=== PATIENT | male | born 1940 | race Caucasian/White ===

== ENCOUNTER → 2016-08-20 | Outpatient (CLI) | payer MEDICARE ==
[2015-11-10 15:04] VITALS: BP 157/75
[~2016-08-20] MED LIST: ACET500T33 PO; ASPI-482 PO; ATEN25TA PO; BUDE180A IH; CRESTOR10 MG PO; FAMO-63 PO; FLUT1DIS3 IH; LOSA1TAB17 PO; METF-620 PO; METF500T4 PO; OLME1TAB5 PO; PIOG45TA19 PO; POTA20TA4 PO; RHINOCORT; SALM50DI IH; SIMV40TA PO; [UNRECOGNIZED DRUG - CODE]
[2016-08-20 07:48] LABS: BASO % 1 % (0-3); EOS % 2 % (0-3); HEMATOCRIT 39.5 % (39.0-53.0); HEMOGLOBIN 13.6 g/dL (13.0-17.5); LYMPH # 1.6 x10^3/uL (1.0-4.8); LYMPH % 27 % (24-48); MEAN CORPUSCULAR HEMOGLOBIN 33 pg (25-35); MEAN CORPUSCULAR HGB CONC 34 g/dL (31-37); MEAN CORPUSCULAR VOLUME 95 fL (79-100); MONO % 8 % (0-9); NEUT % 62 % (31-73); PLATELET COUNT 216 x10^3/uL (140-400); RED BLOOD COUNT 4.16 x10^6/uL (4.30-5.70); RED CELL DISTRIBUTION WIDTH 13.9 % (11.5-14.5); WHITE BLOOD COUNT 5.7 x10^3/uL (4.0-11.0)
[2016-08-20 07:52] LABS: CALCIUM 8.8 mg/dL (8.5-10.1); CREATININE 1.1 mg/dL (0.7-1.3); GFR 64.7; PHOSPHORUS 2.8 mg/dL (2.6-4.7); POTASSIUM 3.4 mmol/L (3.5-5.1)
[2016-08-20 07:53] LABS: ALBUMIN 3.6 g/dL (3.4-5.0)
[2016-08-20 12:15] LABS: UR PROTEIN RD 14.4 mg/dL (Not Estab.)
== END | disposition home or self-care (01) ==
LOC: LAB 07:11
PROVIDERS: ATTEND Nurse Practitioner
DX: N18.1 Chronic kidney disease, stage 1 (principal); R80.9 Proteinuria, unspecified
CPT/HCPCS: 36415; 80069; 82570; 84156; 85027

== ENCOUNTER → 2016-10-24 | Outpatient (CLI) | payer MEDICARE ==
[2015-11-10 15:04] VITALS: BP 157/75
[~2016-10-24] MED LIST changes: +OLME1TAB25 PO; -OLME1TAB5 PO; -PIOG45TA19 PO; +PIOG45TA40 PO
== END | disposition home or self-care (01) ==
LOC: LAB 07:07
PROVIDERS: ATTEND Specialist
DX: Z12.5 Encounter for screening for malignant neoplasm of prostate (principal); N40.1 Benign prostatic hyperplasia with lower urinary tract symptoms
CPT/HCPCS: 36415; G0103

== ENCOUNTER → 2017-02-13 | Outpatient (CLI) | payer MEDICARE ==
[2015-11-10 15:04] VITALS: BP 157/75
[~2017-02-13] MED LIST changes: -LOSA1TAB17 PO; +LOSA1TAB22 PO
[2017-02-13 08:09] LABS: BASO % 1 % (0-3); EOS % 2 % (0-3); HEMATOCRIT 40.1 % (39.0-53.0); HEMOGLOBIN 13.8 g/dL (13.0-17.5); LYMPH # 1.6 x10^3/uL (1.0-4.8); LYMPH % 22 % (24-48); MEAN CORPUSCULAR HEMOGLOBIN 34 pg (25-35); MEAN CORPUSCULAR HGB CONC 34 g/dL (31-37); MEAN CORPUSCULAR VOLUME 98 fL (79-100); MONO % 7 % (0-9); NEUT % 69 % (31-73); PLATELET COUNT 211 x10^3/uL (140-400); RED BLOOD COUNT 4.09 x10^6/uL (4.30-5.70); RED CELL DISTRIBUTION WIDTH 14.5 % (11.5-14.5); WHITE BLOOD COUNT 7.1 x10^3/uL (4.0-11.0)
[2017-02-13 08:26] LABS: ALBUMIN 3.6 g/dL (3.4-5.0); CALCIUM 9.4 mg/dL (8.5-10.1); CREATININE 1.1 mg/dL (0.7-1.3); GFR 64.6; PHOSPHORUS 3.1 mg/dL (2.6-4.7); POTASSIUM 3.4 mmol/L (3.5-5.1)
== END | disposition home or self-care (01) ==
LOC: LAB 07:16
PROVIDERS: ATTEND Nurse Practitioner
DX: N18.1 Chronic kidney disease, stage 1 (principal); R80.9 Proteinuria, unspecified
CPT/HCPCS: 36415; 80069; 82570; 84156; 85025

== ENCOUNTER → 2017-08-20 | Outpatient (CLI) | payer MEDICARE ==
[2017-08-20 07:25] LABS: ADD MAN DIFF? NO
[2017-08-20 07:30] LABS: BASO % 0 % (0-3); EOS # 0.2 x10^3/uL (0.0-0.7); EOS % 3 % (0-3); HEMATOCRIT 39.4 % (39.0-53.0); HEMOGLOBIN 14.1 g/dL (13.0-17.5); LYMPH # 1.8 x10^3/uL (1.0-4.8); LYMPH % 26 % (24-48); MEAN CORPUSCULAR HEMOGLOBIN 35 pg (25-35); MEAN CORPUSCULAR HGB CONC 36 g/dL (31-37); MEAN CORPUSCULAR VOLUME 97 fL (79-100); MONO # 0.5 x10^3/uL (0.0-1.1); MONO % 7 % (0-9); NEUT # 4.4 x10^3uL (1.8-7.7); NEUT % 64 % (31-73); PLATELET COUNT 204 x10^3/uL (140-400); RED BLOOD COUNT 4.07 x10^6/uL (4.30-5.70); RED CELL DISTRIBUTION WIDTH 15.4 % (11.5-14.5); WHITE BLOOD COUNT 6.9 x10^3/uL (4.0-11.0)
[2017-08-20 07:41] LABS: ALBUMIN 3.9 g/dL (3.4-5.0); ANION GAP 6 (6-14); BLOOD UREA NITROGEN 16 mg/dL (8-26); CARBON DIOXIDE 30 mmol/L (21-32); CHLORIDE 101 mmol/L (98-107); CREATININE 1.2 mg/dL (0.7-1.3); GFR 58.4; GLUCOSE 146 mg/dL (70-99); POTASSIUM 3.9 mmol/L (3.5-5.1); SODIUM 137 mmol/L (136-145)
[2017-08-20 12:21] LABS: TOTAL PROTEIN CREATININE RATIO 109 mg/g creat (0-200); UR CREATININE RD 138.1 mg/dL (Not Estab.)
== END | disposition home or self-care (01) ==
LOC: LAB 07:08
DX: I12.9 Hypertensive chronic kidney disease with stage 1 through stage 4 chronic kidney disease, or unspecified chronic kidney disease (principal); N18.1 Chronic kidney disease, stage 1; E11.9 Type 2 diabetes mellitus without complications; R80.9 Proteinuria, unspecified
CPT/HCPCS: 36415; 80069; 82570; 84156; 85025

== ENCOUNTER → 2017-10-25 | Outpatient (CLI) | payer MEDICARE ==
[2017-10-25 09:28] LABS: PROSTATE SPECIFIC ANTIGEN 0.58 ng/mL (0.00-4.00)
== END | disposition home or self-care (01) ==
LOC: LAB 07:10
DX: Z12.5 Encounter for screening for malignant neoplasm of prostate (principal); N40.1 Benign prostatic hyperplasia with lower urinary tract symptoms; I10 Essential (primary) hypertension; E11.9 Type 2 diabetes mellitus without complications
CPT/HCPCS: 36415; G0103

== ENCOUNTER → 2018-01-28 | Outpatient (CLI) | payer MEDICARE ==
[2015-11-10 15:04] VITALS: BP 157/75
[~2018-01-28] MED LIST changes: -METF-620 PO; +METF10007 PO; +METF500T16 PO; -METF500T4 PO
[2018-01-28 07:38] LABS: BASO % 1 % (0-3); EOS # 0.1 x10^3/uL (0.0-0.7); EOS % 2 % (0-3); HEMATOCRIT 37.5 % (39.0-53.0); HEMOGLOBIN 13.5 g/dL (13.0-17.5); LYMPH # 1.5 x10^3/uL (1.0-4.8); LYMPH % 26 % (24-48); MEAN CORPUSCULAR HEMOGLOBIN 37 pg (25-35); MEAN CORPUSCULAR HGB CONC 36 g/dL (31-37); MEAN CORPUSCULAR VOLUME 102 fL (79-100); MONO # 0.4 x10^3/uL (0.0-1.1); MONO % 7 % (0-9); NEUT # 3.9 x10^3uL (1.8-7.7); NEUT % 65 % (31-73); PLATELET COUNT 221 x10^3/uL (140-400); RED BLOOD COUNT 3.68 x10^6/uL (4.30-5.70); RED CELL DISTRIBUTION WIDTH 13.6 % (11.5-14.5)
[2018-01-28 07:51] LABS: ALBUMIN 3.9 g/dL (3.4-5.0); CALCIUM 9.1 mg/dL (8.5-10.1); CREATININE 1.1 mg/dL (0.7-1.3); GFR 64.4; PHOSPHORUS 2.9 mg/dL (2.6-4.7); POTASSIUM 3.4 mmol/L (3.5-5.1)
[2018-01-28 15:27] LABS: UR PROTEIN RD 22.3 mg/dL (Not Estab.)
== END | disposition home or self-care (01) ==
LOC: LAB 07:04
PROVIDERS: ATTEND Nurse Practitioner
DX: I12.9 Hypertensive chronic kidney disease with stage 1 through stage 4 chronic kidney disease, or unspecified chronic kidney disease (principal); E11.22 Type 2 diabetes mellitus with diabetic chronic kidney disease; N18.1 Chronic kidney disease, stage 1; R80.9 Proteinuria, unspecified
CPT/HCPCS: 36415; 80069; 82570; 84156; 85025

== ENCOUNTER → 2018-07-29 | Outpatient (CLI) | payer MEDICARE ==
[2015-11-10 15:04] VITALS: BP 157/75
[~2018-07-29] MED LIST changes: +ALBU2.5V8 IH; +AMLO5TAB10 PO; +ATOR20TA58 PO; +GLIP10TA13 PO; +OMEG1CAP38 PO
[2018-07-29 07:48] LABS: BASO % 1 % (0-3); EOS # 0.1 x10^3/uL (0.0-0.7); EOS % 2 % (0-3); HEMOGLOBIN 13.2 g/dL (13.0-17.5); LYMPH # 1.4 x10^3/uL (1.0-4.8); LYMPH % 26 % (24-48); MEAN CORPUSCULAR HEMOGLOBIN 36 pg (25-35); MEAN CORPUSCULAR HGB CONC 36 g/dL (31-37); MEAN CORPUSCULAR VOLUME 101 fL (79-100); MONO # 0.4 x10^3/uL (0.0-1.1); MONO % 7 % (0-9); NEUT # 3.6 x10^3uL (1.8-7.7); NEUT % 65 % (31-73); PLATELET COUNT 189 x10^3/uL (140-400); RED BLOOD COUNT 3.65 x10^6/uL (4.30-5.70); RED CELL DISTRIBUTION WIDTH 15.5 % (11.5-14.5); WHITE BLOOD COUNT 5.5 x10^3/uL (4.0-11.0)
[2018-07-29 07:59] LABS: ALBUMIN 3.8 g/dL (3.4-5.0); CALCIUM 9.1 mg/dL (8.5-10.1); CREATININE 1.2 mg/dL (0.7-1.3); GFR 58.3; PHOSPHORUS 2.6 mg/dL (2.6-4.7); POTASSIUM 3.4 mmol/L (3.5-5.1)
[2018-07-29 08:56] LABS: CREATININE,RANDOM URINE 156.2 mg/dL (Not Establ.)
[2018-07-29 17:23] LABS: CALCIUM PTH 8.9 mg/dL (8.6-10.2); CREATININE PTH 1.14 mg/dL (0.76-1.27); PHOSPHORUS PTH 2.3 mg/dL (2.5-4.5); PTH INTACT 59 pg/mL (15-65)
== END | disposition home or self-care (01) ==
LOC: LAB 07:06
PROVIDERS: ATTEND Nurse Practitioner
DX: I12.9 Hypertensive chronic kidney disease with stage 1 through stage 4 chronic kidney disease, or unspecified chronic kidney disease (principal); N18.1 Chronic kidney disease, stage 1; R80.9 Proteinuria, unspecified
CPT/HCPCS: 36415; 80069; 82570; 83970; 84156; 85025

== ENCOUNTER 2018-08-22 10:17 | Inpatient (IN) | payer MEDICARE ==
[~2018-08-22] VITALS: Ht 185.4 cm; Wt 90.3 kg
[~2018-08-22 10:17] MED LIST changes: -ALBU2.5V8 IH; -AMLO5TAB10 PO; -ATOR20TA58 PO; -GLIP10TA13 PO; -OMEG1CAP38 PO
[2018-08-22] MEDS ORDERED: IV NORMAL SALINE 500ML BAG 500 ML IV ONE (11:00)
[2018-08-22 11:10] LABS: BASO % 1 % (0-3); EOS # 0.1 x10^3/uL (0.0-0.7); EOS % 1 % (0-3); HEMATOCRIT 38.8 % (39.0-53.0); HEMOGLOBIN 13.3 g/dL (13.0-17.5); LYMPH # 1.2 x10^3/uL (1.0-4.8); LYMPH % 24 % (24-48); MEAN CORPUSCULAR HEMOGLOBIN 35 pg (25-35); MEAN CORPUSCULAR HGB CONC 34 g/dL (31-37); MEAN CORPUSCULAR VOLUME 103 fL (79-100); MONO # 0.3 x10^3/uL (0.0-1.1); MONO % 7 % (0-9); NEUT # 3.4 x10^3uL (1.8-7.7); NEUT % 68 % (31-73); PLATELET COUNT 180 x10^3/uL (140-400); RED BLOOD COUNT 3.79 x10^6/uL (4.30-5.70); RED CELL DISTRIBUTION WIDTH 15.7 % (11.5-14.5)
[2018-08-22] MEDS ORDERED: ASPIRIN CHEWABLE 81 MG TABLET. PO ONE (11:15)
--- NOTE | 2018-08-22 11:15 | PHYS DOC ---
Past Medical History Past Medical History: Arrhythmia, COPD, Diabetes-Type II, High Cholesterol, Hypertension Past Surgical History: No Surgical History Smoking: Quit Greater Than 1 Year Alcohol Use: None Drug Use: None Adult General Chief Complaint Chief Complaint: RAPID HEART RATE HPI HPI Patient is a 78 year old male who presents after having an episode of rapid heart rate and low blood pressure this morning. Around 0945, he was sitting at the computer when he began to feel warm, lightheaded, dizzy and noticed his heart beating faster. He and his measured his pulse at 158 and his blood pressure at 90/59 at that time. Previously that morning he had been normotensive with an appropriate heart rate. The episode self-resolved and he did not experience any chest pain, shortness or breath, headache, weakness or paresthesias. He does however still feel slightly nauseous. Of note, patient was seen approximately [address] Yip for an arrhythmia which was able to be resolved by "bearing down". Patient's heart rate is now 77 with blood pressure of 126/65. Review of Systems Review of Systems Constitutional: Denies fever or chills Eyes: Denies blurred vision or diplopia HENT: Denies nasal congestion or sore throat Respiratory: Denies cough or shortness of breath Cardiovascular: Reports palpitations earlier in the morning. Denies chest pain GI: Reports nausea. Denies vomiting, abdominal pain. : Denies dysuria or hematuria Neurologic: Reports dizziness. Denies headache, focal weakness or sensory changes Complete systems were reviewed and found to be within normal limits, except as documented in this note. Current Medications Current Medications Current Medications Medications (Trade) Dose Ordered Sig/Alyssa Start Time Stop Time Status Last Admin Dose Admin Aspirin (Children'S Aspirin) 324 mg 1X ONCE 08/22/18 11:15 08/22/18 11:17 DC 08/22/18 11:42 324 MG Magnesium Sulfate 50 ml @ 25 mls/hr 1X ONCE 08/22/18 12:45 08/22/18 14:44 Sodium Chloride 500 ml @ 500 mls/hr 1X ONCE 08/22/18 11:00 08/22/18 11:59 DC 08/22/18 11:05 500 MLS/HR Allergies Allergies Allergies Coded Allergies Type Severity Reaction Last Updated Verified NSAIDS (Non-Steroidal Anti-Inflamma Allergy Severe SWELLING 08/22/18 Yes Physical Exam Physical Exam Constitutional: Well developed, well nourished, no acute distress, non-toxic appearance HENT: Normocephalic, atraumatic, oropharynx moist Eyes: EOMI, conjunctiva normal, no discharge Cardiovascular: Heart rate normal, regular rhythm Lungs & Thorax: Bilateral breath sounds clear to auscultation, no wheezing Abdomen: Soft, no tenderness Skin: Warm, dry, no erythema, no rash Extremities: Radial pulses +2 bilaterally, cap refill less than 2 seconds. Neurologic: Alert and oriented, no focal deficits noted Psychologic: Affect normal, judgement normal, mood normal Current Patient Data Vital Signs Vital Signs Date Time Temp Pulse Resp B/P (MAP) Pulse Ox O2 Delivery O2 Flow Rate FiO2 08/22/18 10:40 98.4 79 18 134/69 (90) 98 Room Air 98.4 Lab Values Laboratory Tests Test 08/22/18 11:00 White Blood Count 5.0 x10^3/uL (4.0-11.0) Red Blood Count 3.79 x10^6/uL (4.30-5.70) L Hemoglobin 13.3 g/dL (13.0-17.5) Hematocrit 38.8 % (39.0-53.0) L Mean Corpuscular Volume 103 fL (79-100) H Mean Corpuscular Hemoglobin 35 pg (25-35) Mean Corpuscular Hemoglobin Concent 34 g/dL (31-37) Red Cell Distribution Width 15.7 % (11.5-14.5) H Platelet Count 180 x10^3/uL (140-400) Neutrophils (%) (Auto) 68 % (31-73) Lymphocytes (%) (Auto) 24 % (24-48) Monocytes (%) (Auto) 7 % (0-9) Eosinophils (%) (Auto) 1 % (0-3) Basophils (%) (Auto) 1 % (0-3) Neutrophils # (Auto) 3.4 x10^3uL (1.8-7.7) Lymphocytes # (Auto) 1.2 x10^3/uL (1.0-4.8) Monocytes # (Auto) 0.3 x10^3/uL (0.0-1.1) Eosinophils # (Auto) 0.1 x10^3/uL (0.0-0.7) Basophils # (Auto) 0.0 x10^3/uL (0.0-0.2) Prothrombin Time 12.2 SEC (11.7-14.0) Prothrombin Time INR 0.9 (0.8-1.1) Sodium Level 138 mmol/L (136-145) Potassium Level 4.3 mmol/L (3.5-5.1) Chloride Level 103 mmol/L (98-107) Carbon Dioxide Level 24 mmol/L (21-32) Anion Gap 11 (6-14) Blood Urea Nitrogen 24 mg/dL (8-26) Creatinine 1.3 mg/dL (0.7-1.3) Estimated GFR (Cockcroft-Gault) 53.1 BUN/Creatinine Ratio 18 (6-20) Glucose Level 262 mg/dL (70-99) H Calcium Level 9.0 mg/dL (8.5-10.1) Magnesium Level 1.4 mg/dL (1.8-2.4) L Total Bilirubin 1.2 mg/dL (0.2-1.0) H Aspartate Amino Transferase (AST) 17 U/L (15-37) Alanine Aminotransferase (ALT) 16 U/L (16-63) Alkaline Phosphatase 68 U/L (46-116) Creatine Kinase 74 U/L (39-308) Creatine Kinase MB (Mass) 1.9 ng/mL (0.0-3.6) Creatine Kinase MB Relative Index % (0-4) Troponin I Quantitative < 0.017 ng/mL (0.000-0.055) TB-Rrx-M-Type Natriuretic Peptide 119 pg/mL (0-449) Total Protein 7.1 g/dL (6.4-8.2) Albumin 3.8 g/dL (3.4-5.0) Albumin/Globulin Ratio 1.2 (1.0-1.7) Thyroid Stimulating Hormone (TSH) 3.261 uIU/mL (0.358-3.74) Free Thyroxine 0.99 ng/dL (0.76-1.46) Free Triiodothyronine (T3) pg/mL 2.22 pg/mL (2.18-3.98) Laboratory Tests 08/22/18 11:00 Laboratory Tests 08/22/18 11:00 EKG EKG @1043: Sinus rhythm with rate of 80. Left anterior fascicular block. Right bundle-branch block with QRS of 122 ms. T-wave inversion present in V1. No ST segment elevation or depression. EKG similar appearance to study on November 09, 2015[] Radiology/Procedures Radiology/Procedures PROCEDURE: CHEST PA & LATERAL Chest, 2 views, 08/22/2018: HISTORY: Dizziness Comparison is made to a study from 11/09/2015. The heart size and pulmonary vascularity are normal. There is calcific plaquing the aorta. No pulmonary infiltrate is seen. There is no evidence of pleural fluid. Mild scattered spurs are present in the spine. IMPRESSION: No acute cardiopulmonary abnormality is detected. Electronically signed by: Walter English MD (08/22/2018 11:26 AM) [facility][] Course & Med Decision Making Course & Med Decision Making Pertinent Labs and Imaging studies reviewed. (See chart for details) Patient is a pleasant 78 year old male with history of SVT 2 years prior that presented to the ED following palpitations and dizziness this morning. During the event, his heart rate was recorded at 158 by his and blood pressure dropped to 90/59. In the ED he has been asymptomatic aside from some mild nausea. EKG was sinus with no changes from previous studies. Chest X-ray ne gative for acute process. CBC unremarkable. Troponin and CK-MB negative. TSH, T3 and T4 within normal limits. CMP showed Mg of 1.4. Patient's heart score is 5 with age and risk factors contributing significantly. Patient was given 500 mL saline bolus in ED as well as 324 mg aspirin. Magnesium replacement began in ED. Discussed with patient that today likely represents another episode of arrhythmia similar to his bout of SVT 2 years ago and that his hypomagnesemia can be a contributing factor. Patient requiring admission for further evaluation and treatment. Discussed with Dr. Collazo (hospitalist) who is in agreement with admission. Discussed findings and plan with patient and family, who acknowledge understanding and agreement. [] Dragon Disclaimer Dragon Disclaimer This electronic medical record was generated, in whole or in part, using a voice recognition dictation system. Departure Departure Impression: Primary Impression: Palpitations Additional Impression: Hypomagnesemia Disposition: ADMITTED INPATIENT Admitting Physician: Clark Yoder Condition: STABLE Referrals: ANEL SMITH (PCP) The HEART Score for CP Pts HEART Score for Chest Pain: HEART Score for Chest Pain Response (Comments) Value History Slighlty/Non-Suspicious 0 ECG Nonspecific Repolarizatio 1 Age > 65 2 Risk Factors >3 Risk Factors or Hx CAD 2 Troponin < Normal Limit 0 Total 5 Risk Factors: Risk Factors: DM, Current or recent (<one month) smoker, HTN, HLP, family history of CAD, obesity. Risk Scores: Score 0 - 3: 2.5% MACE over next 6 weeks - Discharge Home Score 4 - 6: 20.3% MACE over next 6 weeks - Admit for Clinical Observation Score 7 - 10: 72.7% MACE over next 6 weeks - Early Invasive Strategies Problem Qualifiers DERICK STRONG DO August 22, 2018 11:15
--- NOTE | 2018-08-22 11:19 | EKG ---
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
--- NOTE | 2018-08-22 11:30 | RAD ---
Chest, 2 views, 08/22/2018: HISTORY: Dizziness Comparison is made to a study from 11/09/2015. The heart size and pulmonary vascularity are normal. There is calcific plaquing the aorta. No pulmonary infiltrate is seen. There is no evidence of pleural fluid. Mild scattered spurs are present in the spine. IMPRESSION: No acute cardiopulmonary abnormality is detected. Electronically signed by: Walter English MD (08/22/2018 11:26 AM) [facility]
[2018-08-22 11:31] LABS: PROTHROMBIN TIME PATIENT 12.2 SEC (11.7-14.0)
[2018-08-22 11:41] LABS: ALBUMIN 3.8 g/dL (3.4-5.0); ALBUMIN/GLOBULIN RATIO 1.2 (1.0-1.7); MAGNESIUM 1.4 mg/dL (1.8-2.4); POTASSIUM 4.3 mmol/L (3.5-5.1); TOTAL BILIRUBIN 1.2 mg/dL (0.2-1.0); TOTAL PROTEIN 7.1 g/dL (6.4-8.2)
[2018-08-22 12:01] LABS: CREATININE 1.3 mg/dL (0.7-1.3); GFR 53.1
[2018-08-22 12:10] LABS: CREATINE KINASE 74 U/L (39-308)
[2018-08-22 12:17] LABS: FREE T4 0.99 ng/dL (0.76-1.46)
[2018-08-22] MEDS ORDERED: MAGNESIUM SULFATE 2GM 50 ML IV ONE (12:45)
--- NOTE | 2018-08-22 13:05 | PDOC1 ---
History and Physical Date of Admission Date of Admission DATE: 08/22/18 TIME: 13:04 Identification/Chief Complaint Chief Complaint 78-year-old male seen in ER , who was working on his computer earlier today and had abrupt onset of near syncope Around 0945, he was sitting at the computer when he began to feel warm, lightheaded, dizzy and noticed his heart beating faster. He and his measured his pulse at 158 and his blood pressure at 90/59 at that time. Previously that morning he had been normotensive with an appropriate heart rate. The episode self-resolved and he did not experience any chest pain, shortness or breath, headache, weakness or paresthesias. He does however still feel slightly nauseous. Past Medical History Past Medical History Past Medical History Past Medical History Past Medical History: Arrhythmia, COPD, Diabetes-Type II, High Cholesterol, Hypertension Past Surgical History: No Surgical History Smoking: Quit Greater Than 1 Year Alcohol Use: None Drug Use: None FAMILY HX HTN Cardiovascular: HTN, Hyperlipidemia Pulmonary: COPD CENTRAL NERVOUS SYSTEM: Other GI: GERD Heme/Onc: No pertinent hx Hepatobiliary: No pertinent hx Psych: No pertinent hx Musculoskeletal: Osteoarthritis Rheumatologic: No pertinent hx Infectious disease: No pertinent hx Renal/: Other Endocrine: Diabetes Past Surgical History Past Surgical History: Cataract Removal, Tonsillectomy, Other Family History Family History: Cancer Family History: Parent Social History ALCOHOL: none Drugs: None Current Problem List Problem List Problems Medical Problems: (1) Hypomagnesemia Status: Acute (2) Palpitations Status: Acute Current Medications Current Medications Current Medications Sodium Chloride 500 ml @ 500 mls/hr 1X ONCE IV Last administered on 08/22/18at 11:05; Start 08/22/18 at 11:00; Stop 08/22/18 at 11:59; Status DC Aspirin (Children'S Aspirin) 324 mg 1X ONCE PO Last administered on 08/22/18at 11:42; Start 08/22/18 at 11:15; Stop 08/22/18 at 11:17; Status DC Magnesium Sulfate 50 ml @ 25 mls/hr 1X ONCE IV ; Start 08/22/18 at 12:45; Stop 08/22/18 at 14:44 Active Scripts Active Reported Losartan-Hctz 100-25 Mg Tab (Losartan/Hydrochlorothiazide) 1 Each Tablet 1 Tab PO DAILY Advair 250-50 Diskus (Fluticasone/Salmeterol) 1 Each Disk.w.dev 1 Puff IH DAILY Zocor (Simvastatin) 40 Mg Tablet 1 Tab PO QHS Atenolol 25 Mg Tablet 1 Tab PO DAILY Tylenol Extra Strength (Acetaminophen) 500 Mg Tablet 500 Mg PO PRN Q6HRS PRN Aspir 81 (Aspirin) 81 Mg Tablet.dr 81 Mg PO DAILY Klor-Con M20 (Potassium Chloride) 20 Meq Tab.er.prt 1 Tab PO BIDWMEALS Metformin Hcl 1,000 Mg Tablet 1 Tab PO BIDAFTMEAL Metformin Hcl 500 Mg Tablet 1 Tab PO HS Allergies Allergies: Coded Allergies: NSAIDS (Non-Steroidal Anti-Inflamma (Verified Allergy, Severe, SWELLING, 08/22/18) Tolerates aspirin ROS Review of System Review of Systems Constitutional: Denies fever or chills Eyes: Denies blurred vision or diplopia HENT: Denies nasal congestion or sore throat Respiratory: Denies cough or shortness of breath Cardiovascular: Reports palpitations earlier in the morning. Denies chest pain GI: Reports nausea. Denies vomiting, abdominal pain. : Denies dysuria or hematuria Neurologic: Reports dizziness. Denies headache, focal weakness or sensory changes 14 PT systems were reviewed and found to be within normal limits, except as documented Physical Exam Physical Exam Physical Exam Physical Exam Constitutional: Well developed, well nourished, no acute distress, non-toxic appearance HENT: Normocephalic, atraumatic, oropharynx moist Eyes: EOMI, conjunctiva normal, no discharge Cardiovascular: Heart rate normal, regular rhythm Lungs & Thorax: Bilateral breath sounds clear to auscultation, no wheezing Abdomen: Soft, no tenderness Skin: Warm, dry, no erythema, no rash Extremities: Radial pulses +2 bilaterally, cap refill less than 2 seconds. Neurologic: Alert and oriented, no focal deficits noted Psychologic: Affect normal, judgement normal, mood normal General: Alert, Oriented X3, Cooperative HEENT: Atraumatic, PERRLA Lungs: Clear to auscultation Vitals Vitals Vital Signs Date Time Temp Pulse Resp B/P (MAP) Pulse Ox O2 Delivery O2 Flow Rate FiO2 08/22/18 10:40 98.4 79 18 134/69 (90) 98 Room Air 98.4 Labs Labs Laboratory Tests Test 08/22/18 11:00 White Blood Count 5.0 x10^3/uL (4.0-11.0) Red Blood Count 3.79 x10^6/uL (4.30-5.70) Hemoglobin 13.3 g/dL (13.0-17.5) Hematocrit 38.8 % (39.0-53.0) Mean Corpuscular Volume 103 fL (79-100) Mean Corpuscular Hemoglobin 35 pg (25-35) Mean Corpuscular Hemoglobin Concent 34 g/dL (31-37) Red Cell Distribution Width 15.7 % (11.5-14.5) Platelet Count 180 x10^3/uL (140-400) Neutrophils (%) (Auto) 68 % (31-73) Lymphocytes (%) (Auto) 24 % (24-48) Monocytes (%) (Auto) 7 % (0-9) Eosinophils (%) (Auto) 1 % (0-3) Basophils (%) (Auto) 1 % (0-3) Neutrophils # (Auto) 3.4 x10^3uL (1.8-7.7) Lymphocytes # (Auto) 1.2 x10^3/uL (1.0-4.8) Monocytes # (Auto) 0.3 x10^3/uL (0.0-1.1) Eosinophils # (Auto) 0.1 x10^3/uL (0.0-0.7) Basophils # (Auto) 0.0 x10^3/uL (0.0-0.2) Prothrombin Time 12.2 SEC (11.7-14.0) Prothromb Time International Ratio 0.9 (0.8-1.1) Sodium Level 138 mmol/L (136-145) Potassium Level 4.3 mmol/L (3.5-5.1) Chloride Level 103 mmol/L (98-107) Carbon Dioxide Level 24 mmol/L (21-32) Anion Gap 11 (6-14) Blood Urea Nitrogen 24 mg/dL (8-26) Creatinine 1.3 mg/dL (0.7-1.3) Estimated GFR (Cockcroft-Gault) 53.1 BUN/Creatinine Ratio 18 (6-20) Glucose Level 262 mg/dL (70-99) Calcium Level 9.0 mg/dL (8.5-10.1) Magnesium Level 1.4 mg/dL (1.8-2.4) Total Bilirubin 1.2 mg/dL (0.2-1.0) Aspartate Amino Transf (AST/SGOT) 17 U/L (15-37) Alanine Aminotransferase (ALT/SGPT) 16 U/L (16-63) Alkaline Phosphatase 68 U/L (46-116) Creatine Kinase 74 U/L (39-308) Creatine Kinase MB (Mass) 1.9 ng/mL (0.0-3.6) Creatine Kinase MB Relative Index % (0-4) Troponin I Quantitative < 0.017 ng/mL (0.000-0.055) TQ-Aio-A-Type Natriuretic Peptide 119 pg/mL (0-449) Total Protein 7.1 g/dL (6.4-8.2) Albumin 3.8 g/dL (3.4-5.0) Albumin/Globulin Ratio 1.2 (1.0-1.7) Thyroid Stimulating Hormone (TSH) 3.261 uIU/mL (0.358-3.74) Free Thyroxine 0.99 ng/dL (0.76-1.46) Free Triiodothyronine (T3) pg/mL 2.22 pg/mL (2.18-3.98) Laboratory Tests Test 08/22/18 11:00 White Blood Count 5.0 x10^3/uL (4.0-11.0) Red Blood Count 3.79 x10^6/uL (4.30-5.70) Hemoglobin 13.3 g/dL (13.0-17.5) Hematocrit 38.8 % (39.0-53.0) Mean Corpuscular Volume 103 fL (79-100) Mean Corpuscular Hemoglobin 35 pg (25-35) Mean Corpuscular Hemoglobin Concent 34 g/dL (31-37) Red Cell Distribution Width 15.7 % (11.5-14.5) Platelet Count 180 x10^3/uL (140-400) Neutrophils (%) (Auto) 68 % (31-73) Lymphocytes (%) (Auto) 24 % (24-48) Monocytes (%) (Auto) 7 % (0-9) Eosinophils (%) (Auto) 1 % (0-3) Basophils (%) (Auto) 1 % (0-3) Neutrophils # (Auto) 3.4 x10^3uL (1.8-7.7) Lymphocytes # (Auto) 1.2 x10^3/uL (1.0-4.8) Monocytes # (Auto) 0.3 x10^3/uL (0.0-1.1) Eosinophils # (Auto) 0.1 x10^3/uL (0.0-0.7) Basophils # (Auto) 0.0 x10^3/uL (0.0-0.2) Prothrombin Time 12.2 SEC (11.7-14.0) Prothromb Time International Ratio 0.9 (0.8-1.1) Sodium Level 138 mmol/L (136-145) Potassium Level 4.3 mmol/L (3.5-5.1) Chloride Level 103 mmol/L (98-107) Carbon Dioxide Level 24 mmol/L (21-32) Anion Gap 11 (6-14) Blood Urea Nitrogen 24 mg/dL (8-26) Creatinine 1.3 mg/dL (0.7-1.3) Estimated GFR (Cockcroft-Gault) 53.1 BUN/Creatinine Ratio 18 (6-20) Glucose Level 262 mg/dL (70-99) Calcium Level 9.0 mg/dL (8.5-10.1) Magnesium Level 1.4 mg/dL (1.8-2.4) Total Bilirubin 1.2 mg/dL (0.2-1.0) Aspartate Amino Transf (AST/SGOT) 17 U/L (15-37) Alanine Aminotransferase (ALT/SGPT) 16 U/L (16-63) Alkaline Phosphatase 68 U/L (46-116) Creatine Kinase 74 U/L (39-308) Creatine Kinase MB (Mass) 1.9 ng/mL (0.0-3.6) Creatine Kinase MB Relative Index % (0-4) Troponin I Quantitative < 0.017 ng/mL (0.000-0.055) JY-Ymy-S-Type Natriuretic Peptide 119 pg/mL (0-449) Total Protein 7.1 g/dL (6.4-8.2) Albumin 3.8 g/dL (3.4-5.0) Albumin/Globulin Ratio 1.2 (1.0-1.7) Thyroid Stimulating Hormone (TSH) 3.261 uIU/mL (0.358-3.74) Free Thyroxine 0.99 ng/dL (0.76-1.46) Free Triiodothyronine (T3) pg/mL 2.22 pg/mL (2.18-3.98) VTE Prophylaxis Ordered VTE Prophylaxis Devices: Yes VTE Pharmacological Prophylaxi: Yes Assessment/Plan Assessment/Plan IMPRESSION 1. Near syncope 2. SVT 3. Type 2 diabetes mellitus. 4. Hypertension, chronic, stable.- episode of HYPOTEnsion during SVT 5. Mild elevation of TSH. HX 6. HYPOMAGNESEMIA PLAN ADMIT TELE CARDIOLOGY CONSULT REPLACE IRMA SANZ MD August 22, 2018 13:05
[2018-08-22] MEDS ORDERED: DEXTROSE 50% 25 GM / 50ML DISP.SYRIN. IV PRN (13:30)
[2018-08-22] MEDS ORDERED: ONDANSETRON PF 4 MG/2 ML VIAL. IV PRN (13:30)
[2018-08-22] MEDS: INSULIN LISPRO 300 UNITS/3 ML INSULN.PEN. SQ SCH (17:00)
--- NOTE | 2018-08-22 17:35 | PDOC2 ---
CONSULT Date of Consult Date of Consult DATE: 08/22/18 TIME: 17:29 Reason for Consult Reason for Consult: Arrhythmias. Referring Physician Referring Physician: Dr. Collazo Identification/Chief Complaint Chief Complaint rapid heart rate Source Source: Chart review, Patient History of Present Illness Reason for Visit: The patient is a pleasant 78-year-old male who was working on his computer earlier today and had abrupt onset of near syncope. The patient did not lose consciousness. He did not report pain. He felt very lightheaded and upon checking his heart rate and blood pressure his heart rate was approximately 150 with a systolic pressure of 90. This was also checked by his . He was brought immediately to the emergency room and arrived within 15 minutes of its initial episode. In the emergency room he was in a sinus rhythm with a rate of 77 and a blood pressure 126/65. Patient's workup in the emergency room was significant for normal troponin level and a mildly decreased magnesium level I.4. His EKG showed a sinus rhythm with no acute ischemic changes. It was unchanged from 2016. Chest x-ray showed no acute cardiopulmonary abnormalities. The patient does have a history of cardiac arrhythmias and was seen by our service approximately 2 years ago. From his description it sounds like he may have had PSVT. However over the past 2 years he has reported no symptoms. He is now resting comfortably in bed. Past Medical History Cardiovascular: HTN, Hyperlipidemia, Other (arrhythmias) Pulmonary: COPD CENTRAL NERVOUS SYSTEM: Other GI: GERD Heme/Onc: No pertinent hx Hepatobiliary: No pertinent hx Psych: No pertinent hx Musculoskeletal: Osteoarthritis Rheumatologic: No pertinent hx Infectious disease: No pertinent hx Renal/: Other Endocrine: Diabetes Past Surgical History Past Surgical History: Cataract Removal, Tonsillectomy, Other Family History Family History: Cancer Social History Social History: Parent Quit ALCOHOL: none Drugs: None Lives: with Family Current Problem List Problem List Problems Medical Problems: (1) Hypomagnesemia Status: Acute (2) Palpitations Status: Acute Current Medications Current Medications Current Medications Sodium Chloride 500 ml @ 500 mls/hr 1X ONCE IV Last administered on 08/22/18at 11:05; Start 08/22/18 at 11:00; Stop 08/22/18 at 11:59; Status DC Aspirin (Children'S Aspirin) 324 mg 1X ONCE PO Last administered on 08/22/18at 11:42; Start 08/22/18 at 11:15; Stop 08/22/18 at 11:17; Status DC Magnesium Sulfate 50 ml @ 25 mls/hr 1X ONCE IV Last administered on 08/22/18at 14:19; Start 08/22/18 at 12:45; Stop 08/22/18 at 14:44; Status DC Ondansetron HCl (Zofran) 4 mg PRN Q8HRS PRN IV NAUSEA/VOMITING; Start 08/22/18 at 13:30; Stop 08/23/18 at 13:29 Insulin Human Lispro (HumaLOG) 0-5 UNITS TIDWMEALS SQ ; Start 08/22/18 at 17:00 Dextrose (Dextrose 50%-Water Syringe) 12.5 gm PRN Q15MIN PRN IV SEE COMMENTS; Start 08/22/18 at 13:30 Active Scripts Active Reported Losartan-Hctz 100-25 Mg Tab (Losartan/Hydrochlorothiazide) 1 Each Tablet 1 Tab PO DAILY Advair 250-50 Diskus (Fluticasone/Salmeterol) 1 Each Disk.w.dev 1 Puff IH DAILY Zocor (Simvastatin) 40 Mg Tablet 1 Tab PO QHS Atenolol 25 Mg Tablet 1 Tab PO DAILY Tylenol Extra Strength (Acetaminophen) 500 Mg Tablet 500 Mg PO PRN Q6HRS PRN Aspir 81 (Aspirin) 81 Mg Tablet.dr 81 Mg PO DAILY Klor-Con M20 (Potassium Chloride) 20 Meq Tab.er.prt 1 Tab PO BIDWMEALS Metformin Hcl 1,000 Mg Tablet 1 Tab PO BIDAFTMEAL Metformin Hcl 500 Mg Tablet 1 Tab PO HS Allergies Allergies: Coded Allergies: NSAIDS (Non-Steroidal Anti-Inflamma (Verified Allergy, Severe, SWELLING, 08/22/18) Tolerates aspirin ROS Cardiovascular: yes Lt Headedness, yes Other (hypotension) Physical Exam General: No acute distress HEENT: Atraumatic Lungs: Clear to auscultation Heart: Regular rate Abdomen: Normal bowel sounds Vitals VITALS Vital Signs Date Time Temp Pulse Resp B/P (MAP) Pulse Ox O2 Delivery O2 Flow Rate FiO2 08/22/18 10:40 98.4 79 18 134/69 (90) 98 Room Air 98.4 Labs Labs Laboratory Tests Test 08/22/18 11:00 08/22/18 16:57 White Blood Count 5.0 x10^3/uL (4.0-11.0) Red Blood Count 3.79 x10^6/uL (4.30-5.70) Hemoglobin 13.3 g/dL (13.0-17.5) Hematocrit 38.8 % (39.0-53.0) Mean Corpuscular Volume 103 fL (79-100) Mean Corpuscular Hemoglobin 35 pg (25-35) Mean Corpuscular Hemoglobin Concent 34 g/dL (31-37) Red Cell Distribution Width 15.7 % (11.5-14.5) Platelet Count 180 x10^3/uL (140-400) Neutrophils (%) (Auto) 68 % (31-73) Lymphocytes (%) (Auto) 24 % (24-48) Monocytes (%) (Auto) 7 % (0-9) Eosinophils (%) (Auto) 1 % (0-3) Basophils (%) (Auto) 1 % (0-3) Neutrophils # (Auto) 3.4 x10^3uL (1.8-7.7) Lymphocytes # (Auto) 1.2 x10^3/uL (1.0-4.8) Monocytes # (Auto) 0.3 x10^3/uL (0.0-1.1) Eosinophils # (Auto) 0.1 x10^3/uL (0.0-0.7) Basophils # (Auto) 0.0 x10^3/uL (0.0-0.2) Prothrombin Time 12.2 SEC (11.7-14.0) Prothromb Time International Ratio 0.9 (0.8-1.1) Sodium Level 138 mmol/L (136-145) Potassium Level 4.3 mmol/L (3.5-5.1) Chloride Level 103 mmol/L (98-107) Carbon Dioxide Level 24 mmol/L (21-32) Anion Gap 11 (6-14) Blood Urea Nitrogen 24 mg/dL (8-26) Creatinine 1.3 mg/dL (0.7-1.3) Estimated GFR (Cockcroft-Gault) 53.1 BUN/Creatinine Ratio 18 (6-20) Glucose Level 262 mg/dL (70-99) Calcium Level 9.0 mg/dL (8.5-10.1) Magnesium Level 1.4 mg/dL (1.8-2.4) Total Bilirubin 1.2 mg/dL (0.2-1.0) Aspartate Amino Transf (AST/SGOT) 17 U/L (15-37) Alanine Aminotransferase (ALT/SGPT) 16 U/L (16-63) Alkaline Phosphatase 68 U/L (46-116) Creatine Kinase 74 U/L (39-308) Creatine Kinase MB (Mass) 1.9 ng/mL (0.0-3.6) Creatine Kinase MB Relative Index % (0-4) Troponin I Quantitative < 0.017 ng/mL (0.000-0.055) EI-Rla-C-Type Natriuretic Peptide 119 pg/mL (0-449) Total Protein 7.1 g/dL (6.4-8.2) Albumin 3.8 g/dL (3.4-5.0) Albumin/Globulin Ratio 1.2 (1.0-1.7) Thyroid Stimulating Hormone (TSH) 3.261 uIU/mL (0.358-3.74) Free Thyroxine 0.99 ng/dL (0.76-1.46) Free Triiodothyronine (T3) pg/mL 2.22 pg/mL (2.18-3.98) Glucose (Fingerstick) 62 mg/dL (70-99) Laboratory Tests Test 08/22/18 11:00 08/22/18 16:57 White Blood Count 5.0 x10^3/uL (4.0-11.0) Red Blood Count 3.79 x10^6/uL (4.30-5.70) Hemoglobin 13.3 g/dL (13.0-17.5) Hematocrit 38.8 % (39.0-53.0) Mean Corpuscular Volume 103 fL (79-100) Mean Corpuscular Hemoglobin 35 pg (25-35) Mean Corpuscular Hemoglobin Concent 34 g/dL (31-37) Red Cell Distribution Width 15.7 % (11.5-14.5) Platelet Count 180 x10^3/uL (140-400) Neutrophils (%) (Auto) 68 % (31-73) Lymphocytes (%) (Auto) 24 % (24-48) Monocytes (%) (Auto) 7 % (0-9) Eosinophils (%) (Auto) 1 % (0-3) Basophils (%) (Auto) 1 % (0-3) Neutrophils # (Auto) 3.4 x10^3uL (1.8-7.7) Lymphocytes # (Auto) 1.2 x10^3/uL (1.0-4.8) Monocytes # (Auto) 0.3 x10^3/uL (0.0-1.1) Eosinophils # (Auto) 0.1 x10^3/uL (0.0-0.7) Basophils # (Auto) 0.0 x10^3/uL (0.0-0.2) Prothrombin Time 12.2 SEC (11.7-14.0) Prothromb Time International Ratio 0.9 (0.8-1.1) Sodium Level 138 mmol/L (136-145) Potassium Level 4.3 mmol/L (3.5-5.1) Chloride Level 103 mmol/L (98-107) Carbon Dioxide Level 24 mmol/L (21-32) Anion Gap 11 (6-14) Blood Urea Nitrogen 24 mg/dL (8-26) Creatinine 1.3 mg/dL (0.7-1.3) Estimated GFR (Cockcroft-Gault) 53.1 BUN/Creatinine Ratio 18 (6-20) Glucose Level 262 mg/dL (70-99) Calcium Level 9.0 mg/dL (8.5-10.1) Magnesium Level 1.4 mg/dL (1.8-2.4) Total Bilirubin 1.2 mg/dL (0.2-1.0) Aspartate Amino Transf (AST/SGOT) 17 U/L (15-37) Alanine Aminotransferase (ALT/SGPT) 16 U/L (16-63) Alkaline Phosphatase 68 U/L (46-116) Creatine Kinase 74 U/L (39-308) Creatine Kinase MB (Mass) 1.9 ng/mL (0.0-3.6) Creatine Kinase MB Relative Index % (0-4) Troponin I Quantitative < 0.017 ng/mL (0.000-0.055) SU-Fsq-K-Type Natriuretic Peptide 119 pg/mL (0-449) Total Protein 7.1 g/dL (6.4-8.2) Albumin 3.8 g/dL (3.4-5.0) Albumin/Globulin Ratio 1.2 (1.0-1.7) Thyroid Stimulating Hormone (TSH) 3.261 uIU/mL (0.358-3.74) Free Thyroxine 0.99 ng/dL (0.76-1.46) Free Triiodothyronine (T3) pg/mL 2.22 pg/mL (2.18-3.98) Glucose (Fingerstick) 62 mg/dL (70-99) Images Images Chest x-ray shows no acute cardiopulmonary process. Assessment/Plan Assessment/Plan 1. Near syncope. As outlined above the patient had a rapid onset of lightheadedness and near syncope earlier today. Readings by himself and his family show a rapid heart rate and a low blood pressure. This resolved by the time the patient arrived in the emergency room. Lab testing showed was mild hypomagnesemia. EKG shows no acute changes. Patient has history of probable PSVT but has had no episodes over 2 years. We'll continue on monitoring. Will replace magnesium. We'll check an echocardiogram. We'll also check old records. This was discussed with the patient. 2. History of hypertension. Monitoring the patient's blood pressure. No medications this time secondary to his episodes of hypotension. 3. Diabetes mellitus. As per the primary service. 4. Hyperlipidemia by report. We'll check lab. Thank you for allowing us to participate in the care of your patient. MILTON RIVERA MD August 22, 2018 17:35
[2018-08-22] MEDS ORDERED: FAMO-63 PO (17:52)
[2018-08-22] MEDS ORDERED: ALBU2.5V8 IH (17:52)
[2018-08-22] MEDS ORDERED: GLIP10TA13 PO (17:52)
[2018-08-22] MEDS ORDERED: OMEG1CAP38 PO (17:52)
[2018-08-22] MEDS ORDERED: ATOR20TA58 PO (17:52)
[2018-08-22] MEDS ORDERED: AMLO5TAB10 PO (17:52)
[2018-08-22] MEDS ORDERED: NON FORMULARY ITEM (Metformin Hcl 1 TAB) PO SCH (18:00)
[2018-08-22] MEDS ORDERED: ALBUTEROL SULFATE 2.5 MG/3 ML NEBU. NEB PRN (18:00)
[2018-08-22] MEDS ORDERED: FAMOTIDINE 20 MG TABLET. PO PRN (18:00)
[2018-08-22] MEDS ORDERED: ACETAMINOPHEN 500 MG TABLET PO PRN (18:15)
[2018-08-22] MEDS: glipiZIDE 5 MG TABLET PO SCH (18:18)
[2018-08-22 19:44] VITALS: BP 138/64
[2018-08-22] MEDS: BUDESONIDE 0.5 MG/2 ML NEBU. NEB SCH (20:00)
[2018-08-22] MEDS: ALBUTEROL SULFATE 2.5 MG/3 ML NEBU. NEB SCH (20:00)
[2018-08-22] MEDS ORDERED: amLODIPine BESYLATE 5 MG TABLET PO SCH (21:00)
[2018-08-22 23:07] VITALS: BP 122/58
[2018-08-22 23:53] VITALS: BP 128/56
[2018-08-23 03:41] VITALS: BP 126/62
[2018-08-23 05:19] LABS: BASO % 0 % (0-3); EOS # 0.1 x10^3/uL (0.0-0.7); EOS % 2 % (0-3); HEMATOCRIT 36.8 % (39.0-53.0); LYMPH # 1.2 x10^3/uL (1.0-4.8); LYMPH % 21 % (24-48); MEAN CORPUSCULAR HEMOGLOBIN 36 pg (25-35); MEAN CORPUSCULAR HGB CONC 35 g/dL (31-37); MEAN CORPUSCULAR VOLUME 102 fL (79-100); MONO # 0.4 x10^3/uL (0.0-1.1); MONO % 6 % (0-9); NEUT # 4.2 x10^3uL (1.8-7.7); NEUT % 71 % (31-73); PLATELET COUNT 182 x10^3/uL (140-400); RED BLOOD COUNT 3.61 x10^6/uL (4.30-5.70); RED CELL DISTRIBUTION WIDTH 15.6 % (11.5-14.5); WHITE BLOOD COUNT 5.9 x10^3/uL (4.0-11.0)
[2018-08-23 06:00] LABS: CALCIUM 9.1 mg/dL (8.5-10.1); CREATININE 1.1 mg/dL (0.7-1.3); GFR 64.4; MAGNESIUM 1.9 mg/dL (1.8-2.4); POTASSIUM 4.1 mmol/L (3.5-5.1)
[2018-08-23] MEDS: BUDESONIDE 0.5 MG/2 ML NEBU. NEB SCH (06:17)
[2018-08-23] MEDS: ALBUTEROL SULFATE 2.5 MG/3 ML NEBU. NEB SCH ×3 (06:17→15:13)
[2018-08-23 07:00] VITALS: BP 128/63
[2018-08-23] MEDS: INSULIN LISPRO 300 UNITS/3 ML INSULN.PEN. SQ SCH ×2 (08:00→12:00)
[2018-08-23] MEDS ORDERED: POTASSIUM CHLORIDE 20 MEQ TABLET.ER. PO SCH (08:00)
[2018-08-23] MEDS ORDERED: metFORMIN 500 MG TABLET PO SCH (08:00)
[2018-08-23] MEDS ORDERED: NON FORMULARY ITEM (Fluticasone/Salmeterol (Advair 250-50 Diskus) 1 PUFF) IH SCH (09:00)
[2018-08-23] MEDS ORDERED: ATENOLOL 25 MG TABLET. PO SCH (09:00)
[2018-08-23] MEDS ORDERED: LOSARTAN POTASSIUM 50 MG TABLET. PO SCH (09:00)
[2018-08-23] MEDS ORDERED: hydroCHLOROthiazide 25 MG TABLET PO SCH (09:00)
[2018-08-23] MEDS ORDERED: ASPIRIN ENTERIC COATED 81 MG TABLET.DR. PO SCH (09:00)
[2018-08-23] MEDS ORDERED: ATORVASTATIN CALCIUM 20 MG TABLET PO SCH (09:00)
[2018-08-23] MEDS ORDERED: OMEGA-3 FATTY ACIDS/FISH OIL 1,000 MG CAPSULE. PO SCH (09:00)
[2018-08-23] MEDS: glipiZIDE 5 MG TABLET PO SCH (09:17)
[2018-08-23 11:00] VITALS: BP 147/65
[2018-08-23 11:09] VITALS: BP 128/64
--- NOTE | 2018-08-23 11:16 | PDOC3 ---
Discharge Summary Visit Information Date of Admission: August 22, 2018 Date of Discharge: August 23, 2018 Admitting Diagnosis Comment: 1. Near syncope. EKG shows no acute changes. Patient has history of probable PSVT but has had no episodes over 2 years. echo pending 2. History of hypertension. 3. Diabetes mellitus. 4. Dyslipidemia Final Diagnosis Problems Medical Problems: (1) Hypomagnesemia Status: Acute (2) Palpitations Status: Acute Brief Hospital Course Allergies Allergies Coded Allergies Type Severity Reaction Last Updated Verified NSAIDS (Non-Steroidal Anti-Inflamma Allergy Severe SWELLING 08/22/18 Yes Vital Signs Vital Signs Date Time Temp Pulse Resp B/P (MAP) Pulse Ox O2 Delivery O2 Flow Rate FiO2 08/23/18 11:09 64 128/64 08/23/18 07:00 98.7 16 95 Room Air 98.7 Lab Results Laboratory Tests Test 08/22/18 11:00 08/22/18 16:50 08/22/18 16:57 08/22/18 19:20 White Blood Count 5.0 x10^3/uL (4.0-11.0) Red Blood Count 3.79 x10^6/uL (4.30-5.70) Hemoglobin 13.3 g/dL (13.0-17.5) Hematocrit 38.8 % (39.0-53.0) Mean Corpuscular Volume 103 fL (79-100) Mean Corpuscular Hemoglobin 35 pg (25-35) Mean Corpuscular Hemoglobin Concent 34 g/dL (31-37) Red Cell Distribution Width 15.7 % (11.5-14.5) Platelet Count 180 x10^3/uL (140-400) Neutrophils (%) (Auto) 68 % (31-73) Lymphocytes (%) (Auto) 24 % (24-48) Monocytes (%) (Auto) 7 % (0-9) Eosinophils (%) (Auto) 1 % (0-3) Basophils (%) (Auto) 1 % (0-3) Neutrophils # (Auto) 3.4 x10^3uL (1.8-7.7) Lymphocytes # (Auto) 1.2 x10^3/uL (1.0-4.8) Monocytes # (Auto) 0.3 x10^3/uL (0.0-1.1) Eosinophils # (Auto) 0.1 x10^3/uL (0.0-0.7) Basophils # (Auto) 0.0 x10^3/uL (0.0-0.2) Prothrombin Time 12.2 SEC (11.7-14.0) Prothromb Time International Ratio 0.9 (0.8-1.1) Sodium Level 138 mmol/L (136-145) Potassium Level 4.3 mmol/L (3.5-5.1) Chloride Level 103 mmol/L (98-107) Carbon Dioxide Level 24 mmol/L (21-32) Anion Gap 11 (6-14) Blood Urea Nitrogen 24 mg/dL (8-26) Creatinine 1.3 mg/dL (0.7-1.3) Estimated GFR (Cockcroft-Gault) 53.1 BUN/Creatinine Ratio 18 (6-20) Glucose Level 262 mg/dL (70-99) Calcium Level 9.0 mg/dL (8.5-10.1) Magnesium Level 1.4 mg/dL (1.8-2.4) Total Bilirubin 1.2 mg/dL (0.2-1.0) Aspartate Amino Transf (AST/SGOT) 17 U/L (15-37) Alanine Aminotransferase (ALT/SGPT) 16 U/L (16-63) Alkaline Phosphatase 68 U/L (46-116) Creatine Kinase 74 U/L (39-308) Creatine Kinase MB (Mass) 1.9 ng/mL (0.0-3.6) Creatine Kinase MB Relative Index % (0-4) Troponin I Quantitative < 0.017 ng/mL (0.000-0.055) < 0.017 ng/mL (0.000-0.055) < 0.017 ng/mL (0.000-0.055) PL-Yvn-X-Type Natriuretic Peptide 119 pg/mL (0-449) Total Protein 7.1 g/dL (6.4-8.2) Albumin 3.8 g/dL (3.4-5.0) Albumin/Globulin Ratio 1.2 (1.0-1.7) Thyroid Stimulating Hormone (TSH) 3.261 uIU/mL (0.358-3.74) Free Thyroxine 0.99 ng/dL (0.76-1.46) Free Triiodothyronine (T3) pg/mL 2.22 pg/mL (2.18-3.98) Glucose (Fingerstick) 62 mg/dL (70-99) Test 08/22/18 20:55 08/23/18 04:30 08/23/18 08:30 Glucose (Fingerstick) 111 mg/dL (70-99) 134 mg/dL (70-99) White Blood Count 5.9 x10^3/uL (4.0-11.0) Red Blood Count 3.61 x10^6/uL (4.30-5.70) Hemoglobin 13.0 g/dL (13.0-17.5) Hematocrit 36.8 % (39.0-53.0) Mean Corpuscular Volume 102 fL (79-100) Mean Corpuscular Hemoglobin 36 pg (25-35) Mean Corpuscular Hemoglobin Concent 35 g/dL (31-37) Red Cell Distribution Width 15.6 % (11.5-14.5) Platelet Count 182 x10^3/uL (140-400) Neutrophils (%) (Auto) 71 % (31-73) Lymphocytes (%) (Auto) 21 % (24-48) Monocytes (%) (Auto) 6 % (0-9) Eosinophils (%) (Auto) 2 % (0-3) Basophils (%) (Auto) 0 % (0-3) Neutrophils # (Auto) 4.2 x10^3uL (1.8-7.7) Lymphocytes # (Auto) 1.2 x10^3/uL (1.0-4.8) Monocytes # (Auto) 0.4 x10^3/uL (0.0-1.1) Eosinophils # (Auto) 0.1 x10^3/uL (0.0-0.7) Basophils # (Auto) 0.0 x10^3/uL (0.0-0.2) Sodium Level 140 mmol/L (136-145) Potassium Level 4.1 mmol/L (3.5-5.1) Chloride Level 104 mmol/L (98-107) Carbon Dioxide Level 26 mmol/L (21-32) Anion Gap 10 (6-14) Blood Urea Nitrogen 19 mg/dL (8-26) Creatinine 1.1 mg/dL (0.7-1.3) Estimated GFR (Cockcroft-Gault) 64.4 Glucose Level 125 mg/dL (70-99) Calcium Level 9.1 mg/dL (8.5-10.1) Magnesium Level 1.9 mg/dL (1.8-2.4) Laboratory Tests Test 08/22/18 16:50 08/22/18 16:57 08/22/18 19:20 08/22/18 20:55 Troponin I Quantitative < 0.017 ng/mL (0.000-0.055) < 0.017 ng/mL (0.000-0.055) Glucose (Fingerstick) 62 mg/dL (70-99) 111 mg/dL (70-99) Test 08/23/18 04:30 08/23/18 08:30 White Blood Count 5.9 x10^3/uL (4.0-11.0) Red Blood Count 3.61 x10^6/uL (4.30-5.70) Hemoglobin 13.0 g/dL (13.0-17.5) Hematocrit 36.8 % (39.0-53.0) Mean Corpuscular Volume 102 fL (79-100) Mean Corpuscular Hemoglobin 36 pg (25-35) Mean Corpuscular Hemoglobin Concent 35 g/dL (31-37) Red Cell Distribution Width 15.6 % (11.5-14.5) Platelet Count 182 x10^3/uL (140-400) Neutrophils (%) (Auto) 71 % (31-73) Lymphocytes (%) (Auto) 21 % (24-48) Monocytes (%) (Auto) 6 % (0-9) Eosinophils (%) (Auto) 2 % (0-3) Basophils (%) (Auto) 0 % (0-3) Neutrophils # (Auto) 4.2 x10^3uL (1.8-7.7) Lymphocytes # (Auto) 1.2 x10^3/uL (1.0-4.8) Monocytes # (Auto) 0.4 x10^3/uL (0.0-1.1) Eosinophils # (Auto) 0.1 x10^3/uL (0.0-0.7) Basophils # (Auto) 0.0 x10^3/uL (0.0-0.2) Sodium Level 140 mmol/L (136-145) Potassium Level 4.1 mmol/L (3.5-5.1) Chloride Level 104 mmol/L (98-107) Carbon Dioxide Level 26 mmol/L (21-32) Anion Gap 10 (6-14) Blood Urea Nitrogen 19 mg/dL (8-26) Creatinine 1.1 mg/dL (0.7-1.3) Estimated GFR (Cockcroft-Gault) 64.4 Glucose Level 125 mg/dL (70-99) Calcium Level 9.1 mg/dL (8.5-10.1) Magnesium Level 1.9 mg/dL (1.8-2.4) Glucose (Fingerstick) 134 mg/dL (70-99) Brief Hospital Course Mr. Herrera is a 78 old pleasant male admitted for near-syncope, had mild hypomagnesemia 1.7 on admission. Maybe history of PSVT. Echo pending. MAg replaced. Some vertigo but as soon bri ome meds he got, he's feeling well and eager to go home. Not sure if he'll be able to wait for the echo. Consu;ts performed cardiology Procedure performed echo No change in home meds, home today if echo negative with . No PT needs dc < 30 Discharge Information Condition at Discharge: Improved, Stable Follow Up: Weeks (pcp or cards if sxs persist) Disposition/Orders: D/C to Home Scheduled Amlodipine Besylate (Amlodipine Besylate) 5 Mg Tablet, 5 MG PO HS for HTN, (Reported) Entered as Reported by: DESTINY ROCHA on 08/22/181751 Last Taken: Unknown Dose on Unknown Date & Time Last Action: Continued on 08/22/181756 by IRMA HENDERSON MD Aspirin (Aspir 81) 81 Mg Tablet.dr, 81 MG PO DAILY, (Reported) Entered as Reported by: AIDEN DOVE on 11/09/151626 Last Action: Continued on 08/22/181756 by IRMA HENDERSON MD Atenolol (Atenolol) 25 Mg Tablet, 1 TAB PO DAILY, #30 Ref 5 (Reported) Entered as Reported by: VIVIAN BOONE on 11/09/152000 Last Action: Converted on 08/22/181756 by IRMA HENDERSON MD Atorvastatin Calcium (Atorvastatin Calcium) 20 Mg Tablet, 1 TAB PO DAILY for high cholesterol, #30 Ref 5 (Reported) Entered as Reported by: DESTINY ROCHA on 08/22/181751 Last Taken: Unknown Dose on Unknown Date & Time Last Action: Continued on 08/22/181756 by IRMA HENDERSON MD Fluticasone/Salmeterol (Advair 250-50 Diskus) 1 Each Disk.w.dev, 1 PUFF IH DAILY, #3 Ref 3 (Reported) Entered as Reported by: VIVIAN BOONE on 11/09/152003 Last Action: Converted on 08/22/181756 by IRMA HENDERSON MD Glipizide (Glipizide) 10 Mg Tablet, 1 TAB PO BID for DM, #60 Ref 5 (Reported) Entered as Reported by: DESTINY ROCHA on 08/22/181751 Last Taken: Unknown Dose on Unknown Date & Time Last Action: Converted on 08/22/181756 by IRMA HENDERSON MD Losartan/Hydrochlorothiazide (Losartan-Hctz 100-25 Mg Tab) 1 Each Tablet, 1 TAB PO DAILY, #90 Ref 1 (Reported) Entered as Reported by: Cely Solano on 11/09/152222 Last Action: Converted on 08/22/181756 by IRMA HENDERSON MD Metformin Hcl (Metformin Hcl) 500 Mg Tablet, 1 TAB PO HS, #60 Ref 3 (Reported) Entered as Reported by: AIDEN DOVE on 11/09/151626 Last Action: HELD on 08/22/181755 by IRMA HENDERSON MD Metformin Hcl (Metformin Hcl) 1,000 Mg Tablet, 1 TAB PO BIDAFTMEAL, #60 Ref 5 (Reported) Entered as Reported by: AIDEN DOVE on 11/09/151626 Last Action: Converted on 08/22/181756 by IRMA HENDERSON MD [place]-3 Fatty Acids/Fish Oil ([place] 3 Fish Oil Softgel) 1 Each Capsule.dr, 1 EAC H PO DAILY for supplment , (Reported) Entered as Reported by: DESTINY ROCHA on 08/22/181751 Last Taken: Unknown Dose on Unknown Date & Time Last Action: Converted on 08/22/181756 by IRMA HENDERSON MD Potassium Chloride (Klor-Con M20) 20 Meq Tab.er.prt, 1 TAB PO BIDWMEALS, #90 Ref 1 (Reported) Entered as Reported by: AIDEN DOVE on 11/09/151626 Last Action: Continued on 08/22/181756 by IRMA HENDERSON MD Scheduled PRN Acetaminophen (Tylenol Extra Strength) 500 Mg Tablet, 500 MG PO PRN Q6HRS PRN for PAIN, (Reported) Entered as Reported by: AIDEN DOVE on 11/09/151629 Last Action: Converted on 08/22/181756 by IRMA HENDERSON MD Albuterol Sulfate (Proventil Hfa Inhaler) 6.7 Gm Hfa.aer.ad, 1 PUFF IH PRN Q4HRS PRN for FOR ASTHMA, Ref 0 (Reported) Entered as Reported by: DESTINY ROCHA on 08/22/181751 Last Taken: Unknown Dose on Unknown Date & Time Last Action: Continued on 08/22/181756 by IRMA HENDERSON MD Famotidine (Pepcid) 20 Mg Tablet, 20 MG PO PRN PRN for HEARTBURN / GAS, (Reported) Entered as Reported by: DESTINY ORCHA on 08/22/181751 Last Taken: Unknown Dose on Unknown Date & Time Last Action: Continued on 08/22/181756 by MD NAVNEET STERLING CHERRIE Y MD August 23, 2018 11:16
--- NOTE | 2018-08-23 14:30 | NUR ---
Discharge instructions given to patient and spouse. Patient verbalized understanding and will follow up with his primary care physician and Dr. Yip as discussed.
--- NOTE | 2018-08-26 10:56 | CARD ---
MR#: [id number] Date of Study: 08/22/2018 Ordering Physician: MILTON PERERA, Referring Physician: IRMA HENDERSON, Tech: Oliva Jalloh APPROVED REPORT EXAM: Two-dimensional and M-mode echocardiogram with Doppler and color Doppler. Other Information Quality : GoodHR: 65bpm INDICATION Paroxysmal Superventricular Tachycardia RISK FACTORS Hypertension Hyperlipidemia 2D DIMENSIONS RVDd3.2 (2.9-3.5cm)Left Atrium(2D)4.2 (1.6-4.0cm) IVSd1.3 (0.7-1.1cm)Aortic Root(2D)3.4 (2.0-3.7cm) LVDd5.4 (3.9-5.9cm)LVOT Diameter2.4 (1.8-2.4cm) PWd1.5 (0.7-1.1cm)LVDs3.8 (2.5-4.0cm) FS (%) 28.7 %SV76.8 ml LVEF(%)54.8 (>50%) Aortic Valve AoV Peak Wai.113.5cm/sAoV VTI28.4cm AO Peak GR.5.1mmHgLVOT VTI 21.38cm AO Mean GR.3mmHg Mitral Valve MV E Ibqronzc36.7cm/sMV DECEL [id number] MV A Fupmnlzm01.4cm/sE/A Ratio0.9 TDI Lateral E' P. V8.17cm/sMedial E' P. V7.40cm/s E/Lateral E'9.8E/Medial E'10.8 Tricuspid Valve TR P. [id number]/sRAP [id number] TR Peak Gr.04beLbEXNS48nmDy Pulmonary Vein S1 Vofywkyq31.7cm/sS2 Ztoxxxir24.33cm/s D2 Kvsczpov93.3cm/sPVa [id number] LEFT VENTRICLE The left ventricle is normal size. There is mild concentric left ventricular hypertrophy. The left ve ntricular systolic function is normal and the ejection fraction is within normal range. The Ejection Fraction is 50-55%. There is normal LV segmental wall motion. Transmitral Doppler flow pattern is Gra de II-pseudonormal filling dynamics. RIGHT VENTRICLE The right ventricle is borderline dilated. There is normal right ventricular wall thickness. The righ t ventricular systolic function is normal. ATRIA The left atrium is borderline dilated. The right atrium is mildly dilated. The interatrial septum is intact with no evidence for an atrial septal defect or patent foramen ovale as noted on 2-D or Dopple r imaging. AORTIC VALVE The aortic valve is normal in structure and function. Doppler and Color Flow revealed no significant aortic regurgitation. There is no significant aortic valvular stenosis. MITRAL VALVE The mitral valve is normal in structure and function. There is no evidence of mitral valve prolapse. There is no mitral valve stenosis. Doppler and Color Flow revealed no mitral valve regurgitation note d. TRICUSPID VALVE The tricuspid valve is normal in structure and function. Doppler and Color Flow revealed trace tricus pid regurgitation with an estimated PAP of 29 mmHg. There is no tricuspid valve stenosis. PULMONIC VALVE The pulmonic valve is not well visualized. Doppler and Color Flow revealed trace pulmonic valvular re gurgitation. GREAT VESSELS The aortic root is normal in size. The IVC was not well visualized. PERICARDIAL EFFUSION There is no evidence of significant pericardial effusion. Critical Notification Critical Value: No <Conclusion> The left ventricle is normal size. The left ventricular systolic function is normal and the ejection fraction is within normal range. The Ejection Fraction is 50-55%. There is mild concentric left ventricular hypertrophy. There is no significant aortic valvular stenosis. Doppler and Color Flow revealed no significant aortic regurgitation. Doppler and Color Flow revealed no mitral valve regurgitation noted. Doppler and Color Flow revealed trace tricuspid regurgitation with an estimated PAP of 29 mmHg. Signed by : Milton Perera MD Electronically Approved : 08/22/2018 17:04:25
== END 2018-08-23 15:00 | disposition home or self-care (01) | DRG 74 ==
LOC: ER 10:17 → 6 SOUTH 12:40
PROVIDERS: ADMIT Family Medicine; ATTEND Family Medicine
DX: G90.8 Other disorders of autonomic nervous system (principal); I47.1 Supraventricular tachycardia; I95.9 Hypotension, unspecified; E83.42 Hypomagnesemia; E11.9 Type 2 diabetes mellitus without complications; E78.00 Pure hypercholesterolemia, unspecified; E78.5 Hyperlipidemia, unspecified; I10 Essential (primary) hypertension; M19.90 Unspecified osteoarthritis, unspecified site; J44.9 Chronic obstructive pulmonary disease, unspecified; K21.9 Gastro-esophageal reflux disease without esophagitis; Z87.891 Personal history of nicotine dependence; Z79.899 Other long term (current) drug therapy; Z88.8 Allergy status to other drugs, medicaments and biological substances; Z90.49 Acquired absence of other specified parts of digestive tract
CPT/HCPCS: 36415; 71046; 80048; 80053; 82553; 82962; 83735; 83880; 84439; 84443; 84481; 84484; 85025; 85610; 93005; 93306; 96361; 96365; J3475; J7040; 99285-25

== ENCOUNTER → 2019-01-26 | Outpatient (CLI) | payer MEDICARE ==
[~2019-01-26] MED LIST changes: +ALBU2.5V8 IH; +AMLO5TAB10 PO; +ATOR20TA58 PO; +GLIP10TA13 PO; +OMEG1CAP38 PO
[2019-01-26 07:38] LABS: CREATININE,RANDOM URINE 114.1 mg/dL (Not Establ.)
[2019-01-26 07:40] LABS: BASO % 1 % (0-3); EOS # 0.1 x10^3/uL (0.0-0.7); EOS % 3 % (0-3); HEMATOCRIT 34.3 % (39.0-53.0); HEMOGLOBIN 11.9 g/dL (13.0-17.5); LYMPH # 1.4 x10^3/uL (1.0-4.8); LYMPH % 29 % (24-48); MEAN CORPUSCULAR HEMOGLOBIN 38 pg (25-35); MEAN CORPUSCULAR HGB CONC 35 g/dL (31-37); MEAN CORPUSCULAR VOLUME 110 fL (79-100); MONO # 0.3 x10^3/uL (0.0-1.1); MONO % 7 % (0-9); NEUT % 61 % (31-73); PLATELET COUNT 220 x10^3/uL (140-400); RED BLOOD COUNT 3.13 x10^6/uL (4.30-5.70); RED CELL DISTRIBUTION WIDTH 16.1 % (11.5-14.5); WHITE BLOOD COUNT 4.8 x10^3/uL (4.0-11.0)
[2019-01-26 07:49] LABS: CALCIUM 8.8 mg/dL (8.5-10.1); CREATININE 1.2 mg/dL (0.7-1.3); GFR 58.1; PHOSPHORUS 2.8 mg/dL (2.6-4.7); POTASSIUM 3.8 mmol/L (3.5-5.1)
== END | disposition home or self-care (01) ==
LOC: LAB 07:14
PROVIDERS: ATTEND Nurse Practitioner
DX: I12.9 Hypertensive chronic kidney disease with stage 1 through stage 4 chronic kidney disease, or unspecified chronic kidney disease (principal); N18.1 Chronic kidney disease, stage 1; R80.9 Proteinuria, unspecified
CPT/HCPCS: 36415; 80069; 82570; 84156; 85025

== ENCOUNTER 2019-04-06 10:59 | Emergency (ER) | payer MEDICARE ==
[~2019-04-06] VITALS: Ht 188 cm; Wt 92.1 kg
[~2019-04-06 10:59] MED LIST changes: -ALBU2.5V8 IH; +PROVENTIL HFA6.7 GM IH
[2019-04-06 11:40] VITALS: BP 162/77
--- NOTE | 2019-04-06 12:01 | PHYS DOC ---
Past Medical History Past Medical History: Arrhythmia, COPD, Diabetes-Type II, High Cholesterol, Hypertension Past Surgical History: No Surgical History Alcohol Use: None Drug Use: None Adult General Chief Complaint Chief Complaint: MECHANICAL FALL HPI HPI Patient is a 79 year old male who presents with a fall as he tripped over a curb prior to arrival. She states she was in parking lot and tripped and fell. He rates his pain as 3 out of 10 severity sharp. He states she's having right shoulder pain, also is having right-sided rib pain, and also has an abrasion to his right knee. Review of Systems Review of Systems Constitutional: Denies fever or chills [] Eyes: Denies change in visual acuity, redness, or eye pain [] HENT: Denies nasal congestion or sore throat [] Respiratory: Denies cough or shortness of breath [] Cardiovascular: No additional information not addressed in HPI [] : Denies dysuria or hematuria [] Musculoskeletal: Reports R knee pain, R sided ribs pain, and R shoulder pain. Integument: Denies rash or skin lesions [] Neurologic: Denies headache, focal weakness or sensory changes [] Complete systems were reviewed and found to be within normal limits, except as documented in this note. Allergies Allergies Allergies Coded Allergies Type Severity Reaction Last Updated Verified NSAIDS (Non-Steroidal Anti-Inflamma Allergy Severe SWELLING 08/22/18 Yes Physical Exam Physical Exam Constitutional: Well developed, well nourished, no acute distress, non-toxic appearance. [] HENT: Normocephalic, atraumatic, bilateral external ears normal, oropharynx moist, no oral exudates, nose normal. [] Eyes: PERRLA, EOMI, conjunctiva normal, no discharge. [] Neck: Normal range of motion, no tenderness, supple, no stridor. [] Cardiovascular:Heart rate regular rhythm, no murmur [] Lungs & Thorax: Bilateral breath sounds clear to auscultation [] Skin: abrasion to R knee.] Back: No tenderness, no CVA tenderness. [] Extremities: R shoulder tenderness, with pain on ROM. The patient is having tenderness in area of R ribs. Neurologic: Alert and oriented X 3, normal motor function, normal sensory function, no focal deficits noted. [] Psychologic: Affect normal, judgement normal, mood normal. [] Current Patient Data Vital Signs Vital Signs Date Time Temp Pulse Resp B/P (MAP) Pulse Ox O2 Delivery O2 Flow Rate FiO2 04/06/19 11:40 97.5 57 20 162/77 (105) 100 Room Air 97.5 EKG EKG [] Radiology/Procedures Radiology/Procedures [][facility] [address] [place] [address] IMAGING REPORT Signed PATIENT: MILTON BEAVERS ACCOUNT: [id number] : 1940 LOCATION: ER AGE: 79 SEX: M EXAM STATUS: REG ER ORD. PHYSICIAN: DERICK CHACKO APRN REASON: fall, RT LAT RIB PAIN PROCEDURE: RIBS RIGHT AND PA CHEST Examination: SHOULDER 2+V RIGHT, RIBS RIGHT AND PA CHEST History: Pain, fall Comparison/Correlation: None Findings: A total of 3 images of the right shoulder were obtained. PA view of the chest was obtained. An additional 4 images of the right ribs were also provided. Acromioclavicular space narrowing is present with spurring. Right glenohumeral joint is unremarkable. Heart size normal. No pneumothorax. No infiltrate or pleural effusion. Punctate densities at the left lung base noted. Correlate with previous intervention. There are 2 right upper abdominal calcifications present measuring up to 2.3 cm diameter. Deformity of the right seventh rib is noted on a single oblique view likely. Impression: No infiltrate. No displaced fracture rib fracture. Right seventh rib fracture is present but is old in appearance. Correlate with symptoms. Unremarkable right shoulder for the patient's age. Electronically signed by: Devonte Parham MD (04/06/2019 12:39 PM) [facility] DICTATED and SIGNED BY: DEVONTE PARHAM MD DATE: 04/06/19 4490 Course & Med Decision Making Course & Med Decision Making Pertinent Labs and Imaging studies reviewed. (See chart for details) Will get imaging. Imaging is unremarkable. Will d/c home with precautions. Dragon Disclaimer Dragon Disclaimer This electronic medical record was generated, in whole or in part, using a voice recognition dictation system. Departure Departure Impression: Primary Impression: Fall Disposition: HOME, SELF-CARE Condition: STABLE Referrals: ANEL SMITH (PCP) Patient Instructions: Fall Prevention and Home Safety Additional Instructions: Thank you for visiting [facility]. We appreciate you trusting us with your care. If any additional problems come up don't hesitate to return to visit us. Please follow up with your primary care provider so they can plan add itional care if needed and know about the problem that you had. If symptoms worsen come back to the Emergency Department. Any concerning symptoms that start such as chest pain, shortness of air, weakness or numbness on one side of the body, running high fevers or any other concerning symptoms return to the ER. Please fill your medications at any pharmacy and follow the prescription instructions. Scripts Hydrocodone/Apap 5-325 (NORCO 5-325 TABLET) 1 Each Tablet 1 TAB PO PRN Q6HRS PRN for PAIN for 3 Days, #10 TAB 0 Refills Prov: DERICK CHACKO APRN 04/06/19 Problem Qualifiers Primary Impression: Fall Encounter type: initial encounter Qualified Codes: W19.XXXA - Unspecified fall, initial encounter DERICK CHACKO APRN Apr 06, 2019 12:00
--- NOTE | 2019-04-06 12:42 | RAD ---
Examination: SHOULDER 2+V RIGHT, RIBS RIGHT AND PA CHEST History: Pain, fall Comparison/Correlation: None Findings: A total of 3 images of the right shoulder were obtained. PA view of the chest was obtained. An additional 4 images of the right ribs were also provided. Acromioclavicular space narrowing is present with spurring. Right glenohumeral joint is unremarkable. Heart size normal. No pneumothorax. No infiltrate or pleural effusion. Punctate densities at the left lung base noted. Correlate with previous intervention. There are 2 right upper abdominal calcifications present measuring up to 2.3 cm diameter. Deformity of the right seventh rib is noted on a single oblique view likely. Impression: No infiltrate. No displaced fracture rib fracture. Right seventh rib fracture is present but is old in appearance. Correlate with symptoms. Unremarkable right shoulder for the patient's age. Electronically signed by: Devonte Arechiga MD (04/06/2019 12:39 PM) [facility]
[2019-04-06] MEDS ORDERED: HYDR-3164 PO (12:48)
== END 2019-04-06 12:56 | disposition home or self-care (01) ==
LOC: ER 10:59
DX: S80.211A Abrasion, right knee, initial encounter (principal); M25.511 Pain in right shoulder; R07.81 Pleurodynia; J44.9 Chronic obstructive pulmonary disease, unspecified; E11.9 Type 2 diabetes mellitus without complications; E78.00 Pure hypercholesterolemia, unspecified; I10 Essential (primary) hypertension; Z88.8 Allergy status to other drugs, medicaments and biological substances; W18.39XA Other fall on same level, initial encounter; Y93.89 Activity, other specified; Y92.89 Other specified places as the place of occurrence of the external cause; Y99.8 Other external cause status
CPT/HCPCS: 71101; 73030; 99284

== ENCOUNTER → 2019-08-19 | Outpatient (CLI) | payer MEDICARE ==
[~2019-08-19] MED LIST changes: +HYDR-3164 PO
[2019-08-19 08:56] LABS: BASO % 0 % (0-3); CREATININE,RANDOM URINE 128.4 mg/dL (Not Establ.); EOS # 0.2 x10^3/uL (0.0-0.7); EOS % 3 % (0-3); HEMATOCRIT 34.3 % (39.0-53.0); LYMPH # 1.2 x10^3/uL (1.0-4.8); LYMPH % 23 % (24-48); MEAN CORPUSCULAR HEMOGLOBIN 39 pg (25-35); MEAN CORPUSCULAR HGB CONC 35 g/dL (31-37); MEAN CORPUSCULAR VOLUME 113 fL (79-100); MONO # 0.3 x10^3/uL (0.0-1.1); MONO % 6 % (0-9); NEUT # 3.5 x10^3/uL (1.8-7.7); NEUT % 68 % (31-73); PLATELET COUNT 193 x10^3/uL (140-400); RED BLOOD COUNT 3.05 x10^6/uL (4.30-5.70); RED CELL DISTRIBUTION WIDTH 17.7 % (11.5-14.5); WHITE BLOOD COUNT 5.2 x10^3/uL (4.0-11.0)
[2019-08-19 09:08] LABS: CALCIUM 8.9 mg/dL (8.5-10.1); CREATININE 1.5 mg/dL (0.7-1.3); GFR 44.9; PHOSPHORUS 2.9 mg/dL (2.6-4.7); POTASSIUM 4.1 mmol/L (3.5-5.1)
[2019-08-19 10:14] LABS: ANISOCYTOSIS MOD; PLT ESTIMATE ADEQUATE (ADEQUATE)
[2019-08-19 10:15] LABS: OVALOCYTES FEW; POLYCHROMASIA SLIGHT; TEAR DROP CELLS OCC
[2019-08-20 06:10] LABS: CALCIUM PTH 9.4 mg/dL (8.6-10.2); CREATININE PTH 1.45 mg/dL (0.76-1.27); PHOSPHORUS PTH 2.8 mg/dL (2.8-4.1); PTH INTACT 52 pg/mL (15-65)
== END | disposition home or self-care (01) ==
LOC: LAB 07:08
PROVIDERS: ATTEND Nurse Practitioner
DX: N18.1 Chronic kidney disease, stage 1 (principal)
CPT/HCPCS: 36415; 80069; 82570; 83970; 84156; 85025

== ENCOUNTER → 2019-12-23 | Outpatient (CLI) | payer MEDICARE ==
[2019-12-23 07:29] LABS: BASO % 1 % (0-3); EOS # 0.1 x10^3/uL (0.0-0.7); EOS % 2 % (0-3); HEMATOCRIT 32.2 % (39.0-53.0); HEMOGLOBIN 10.9 g/dL (13.0-17.5); LYMPH # 1.3 x10^3/uL (1.0-4.8); LYMPH % 20 % (24-48); MEAN CORPUSCULAR HEMOGLOBIN 37 pg (25-35); MEAN CORPUSCULAR HGB CONC 34 g/dL (31-37); MONO # 0.4 x10^3/uL (0.0-1.1); MONO % 6 % (0-9); NEUT # 4.5 x10^3/uL (1.8-7.7); NEUT % 71 % (31-73); PLATELET COUNT 191 x10^3/uL (140-400); RED BLOOD COUNT 2.93 x10^6/uL (4.30-5.70); RED CELL DISTRIBUTION WIDTH 14.8 % (11.5-14.5); WHITE BLOOD COUNT 6.4 x10^3/uL (4.0-11.0)
[2019-12-23 07:41] LABS: CALCIUM 8.7 mg/dL (8.5-10.1); CREATININE 1.6 mg/dL (0.7-1.3); GFR 41.7; POTASSIUM 4.5 mmol/L (3.5-5.1)
[2019-12-23 08:00] LABS: MEAN CORPUSCULAR VOLUME 110 fL (79-100)
== END | disposition home or self-care (01) ==
LOC: LAB 07:00
PROVIDERS: ATTEND Internal Medicine Hematology & Oncology
DX: D51.0 Vitamin B12 deficiency anemia due to intrinsic factor deficiency (principal)
CPT/HCPCS: 36415; 80048; 82607; 85025

== ENCOUNTER → 2020-02-15 | Outpatient (CLI) | payer MEDICARE ==
[~2020-02-15] MED LIST changes: +AMLO-186 PO; -AMLO5TAB10 PO
[2020-02-15 07:55] LABS: BASO % 0 % (0-3); EOS # 0.1 x10^3/uL (0.0-0.7); EOS % 1 % (0-3); HEMATOCRIT 35.5 % (39.0-53.0); HEMOGLOBIN 12.4 g/dL (13.0-17.5); LYMPH # 1.3 x10^3/uL (1.0-4.8); LYMPH % 21 % (24-48); MEAN CORPUSCULAR HEMOGLOBIN 34 pg (25-35); MEAN CORPUSCULAR HGB CONC 35 g/dL (31-37); MEAN CORPUSCULAR VOLUME 96 fL (79-100); MONO # 0.4 x10^3/uL (0.0-1.1); MONO % 7 % (0-9); NEUT # 4.4 x10^3/uL (1.8-7.7); NEUT % 71 % (31-73); PLATELET COUNT 209 x10^3/uL (140-400); RED BLOOD COUNT 3.69 x10^6/uL (4.30-5.70); RED CELL DISTRIBUTION WIDTH 13.9 % (11.5-14.5); WHITE BLOOD COUNT 6.3 x10^3/uL (4.0-11.0)
[2020-02-15 08:27] LABS: CREATININE,RANDOM URINE 119.2 mg/dL (Not Establ.)
[2020-02-15 08:29] LABS: ALBUMIN 3.7 g/dL (3.4-5.0); CALCIUM 8.5 mg/dL (8.5-10.1); CREATININE 1.5 mg/dL (0.7-1.3); GFR 44.8; PHOSPHORUS 2.6 mg/dL (2.6-4.7); POTASSIUM 3.8 mmol/L (3.5-5.1)
[2020-02-16 00:08] LABS: CALCIUM PTH 8.9 mg/dL (8.6-10.2); CREATININE PTH 1.49 mg/dL (0.76-1.27); PHOSPHORUS PTH 2.6 mg/dL (2.8-4.1); PTH INTACT 73 pg/mL (15-65)
== END ==
LOC: LAB 07:17
PROVIDERS: ATTEND Nurse Practitioner
DX: N18.1 Chronic kidney disease, stage 1 (principal)
CPT/HCPCS: 36415; 80069; 82570; 83970; 84156; 85025

== ENCOUNTER → 2020-02-23 | Outpatient (CLI) | payer MEDICARE ==
[2020-02-23 09:20] LABS: CREATININE 1.6 mg/dL (0.7-1.3); GFR 41.6; POTASSIUM 4.2 mmol/L (3.5-5.1)
[2020-02-23 09:46] LABS: BASO % 0 % (0-3); EOS # 0.1 x10^3/uL (0.0-0.7); EOS % 1 % (0-3); HEMATOCRIT 37.9 % (39.0-53.0); HEMOGLOBIN 12.6 g/dL (13.0-17.5); LYMPH # 1.3 x10^3/uL (1.0-4.8); LYMPH % 19 % (24-48); MEAN CORPUSCULAR HEMOGLOBIN 32 pg (25-35); MEAN CORPUSCULAR HGB CONC 33 g/dL (31-37); MEAN CORPUSCULAR VOLUME 96 fL (79-100); MONO # 0.4 x10^3/uL (0.0-1.1); MONO % 6 % (0-9); NEUT % 73 % (31-73); PLATELET COUNT 219 x10^3/uL (140-400); RED BLOOD COUNT 3.96 x10^6/uL (4.30-5.70); RED CELL DISTRIBUTION WIDTH 13.2 % (11.5-14.5); WHITE BLOOD COUNT 6.8 x10^3/uL (4.0-11.0)
[2020-02-24 13:17] LABS: KAPPA FREE 61.1 mg/L (3.3-19.4); KAPPA LAMBDA RATIO 1.68 (0.26-1.65); LAMBDA FREE 36.4 mg/L (5.7-26.3)
== END ==
LOC: LAB 08:13
PROVIDERS: ATTEND Internal Medicine Hematology & Oncology
DX: D51.0 Vitamin B12 deficiency anemia due to intrinsic factor deficiency (principal)
CPT/HCPCS: 36415; 80048; 83520; 85025

== ENCOUNTER → 2020-03-02 | Outpatient (CLI) | payer MEDICARE ==
[2020-03-02 08:45] LABS: BASO % 0 % (0-3); EOS # 0.1 x10^3/uL (0.0-0.7); EOS % 2 % (0-3); HEMATOCRIT 35.9 % (39.0-53.0); HEMOGLOBIN 12.2 g/dL (13.0-17.5); LYMPH # 1.5 x10^3/uL (1.0-4.8); LYMPH % 22 % (24-48); MEAN CORPUSCULAR HEMOGLOBIN 32 pg (25-35); MEAN CORPUSCULAR HGB CONC 34 g/dL (31-37); MEAN CORPUSCULAR VOLUME 94 fL (79-100); MONO # 0.6 x10^3/uL (0.0-1.1); MONO % 8 % (0-9); NEUT # 4.7 x10^3/uL (1.8-7.7); NEUT % 68 % (31-73); PLATELET COUNT 194 x10^3/uL (140-400); RED BLOOD COUNT 3.84 x10^6/uL (4.30-5.70); RED CELL DISTRIBUTION WIDTH 13.1 % (11.5-14.5); WHITE BLOOD COUNT 6.9 x10^3/uL (4.0-11.0)
[2020-03-02 08:50] LABS: CREATININE,RANDOM URINE 117.9 mg/dL (Not Establ.)
[2020-03-02 09:03] LABS: ALBUMIN 3.7 g/dL (3.4-5.0); CALCIUM 8.7 mg/dL (8.5-10.1); CREATININE 1.4 mg/dL (0.7-1.3); GFR 48.5; PHOSPHORUS 2.8 mg/dL (2.6-4.7); POTASSIUM 4.2 mmol/L (3.5-5.1)
[2020-03-03 08:10] LABS: CALCIUM PTH 9.2 mg/dL (8.6-10.2); CREATININE PTH 1.46 mg/dL (0.76-1.27); PHOSPHORUS PTH 2.8 mg/dL (2.8-4.1); PTH INTACT 72 pg/mL (15-65)
== END ==
LOC: LAB 07:19
PROVIDERS: ATTEND Nurse Practitioner
DX: N18.1 Chronic kidney disease, stage 1 (principal)
CPT/HCPCS: 36415; 80069; 82570; 83970; 84156; 85025

== ENCOUNTER → 2020-04-13 | Outpatient (CLI) | payer MEDICARE ==
[~2020-04-13] MED LIST changes: -SALM50DI IH; +SALM50DI2 IH
[2020-04-13 07:49] LABS: CREATININE,RANDOM URINE 141.7 mg/dL (Not Establ.)
[2020-04-13 07:51] LABS: ALBUMIN 3.6 g/dL (3.4-5.0); CALCIUM 8.9 mg/dL (8.5-10.1); CREATININE 1.7 mg/dL (0.7-1.3); GFR 38.8; PHOSPHORUS 3.1 mg/dL (2.6-4.7); POTASSIUM 4.4 mmol/L (3.5-5.1)
[2020-04-13 07:56] LABS: BASO % 0 % (0-3); EOS # 0.1 x10^3/uL (0.0-0.7); EOS % 2 % (0-3); HEMATOCRIT 35.2 % (39.0-53.0); HEMOGLOBIN 12.2 g/dL (13.0-17.5); LYMPH # 1.5 x10^3/uL (1.0-4.8); LYMPH % 21 % (24-48); MEAN CORPUSCULAR HEMOGLOBIN 31 pg (25-35); MEAN CORPUSCULAR HGB CONC 35 g/dL (31-37); MEAN CORPUSCULAR VOLUME 90 fL (79-100); MONO # 0.6 x10^3/uL (0.0-1.1); MONO % 8 % (0-9); NEUT % 69 % (31-73); PLATELET COUNT 212 x10^3/uL (140-400); RED BLOOD COUNT 3.92 x10^6/uL (4.30-5.70); WHITE BLOOD COUNT 7.3 x10^3/uL (4.0-11.0)
[2020-04-14 10:21] LABS: CREATININE PTH 1.51 mg/dL (0.76-1.27); PHOSPHORUS PTH 2.7 mg/dL (2.8-4.1); PTH INTACT 64 pg/mL (15-65)
== END ==
LOC: LAB 07:19
PROVIDERS: ATTEND Nurse Practitioner
DX: N18.32 Chronic kidney disease, stage 3b (principal)
CPT/HCPCS: 36415; 80069; 82570; 83970; 84156; 85025

== ENCOUNTER → 2020-04-28 | Outpatient (CLI) | payer MEDICARE ==
[~2020-04-28] MED LIST changes: +SALM50DI IH; -SALM50DI2 IH
[2020-04-28 07:57] LABS: BASO % 0 % (0-3); EOS # 0.1 x10^3/uL (0.0-0.7); EOS % 2 % (0-3); HEMATOCRIT 36.8 % (39.0-53.0); HEMOGLOBIN 12.4 g/dL (13.0-17.5); LYMPH # 1.4 x10^3/uL (1.0-4.8); LYMPH % 18 % (24-48); MEAN CORPUSCULAR HEMOGLOBIN 30 pg (25-35); MEAN CORPUSCULAR HGB CONC 34 g/dL (31-37); MEAN CORPUSCULAR VOLUME 90 fL (79-100); MONO # 0.5 x10^3/uL (0.0-1.1); MONO % 7 % (0-9); NEUT # 5.7 x10^3/uL (1.8-7.7); NEUT % 73 % (31-73); PLATELET COUNT 216 x10^3/uL (140-400); RED BLOOD COUNT 4.08 x10^6/uL (4.30-5.70); RED CELL DISTRIBUTION WIDTH 13.6 % (11.5-14.5); WHITE BLOOD COUNT 7.8 x10^3/uL (4.0-11.0)
[2020-04-28 08:13] LABS: ALBUMIN 3.7 g/dL (3.4-5.0); CALCIUM 8.9 mg/dL (8.5-10.1); CREATININE 1.8 mg/dL (0.7-1.3); GFR 36.3; POTASSIUM 4.4 mmol/L (3.5-5.1)
[2020-04-28 13:13] LABS: CALCIUM PTH 8.9 mg/dL (8.6-10.2); CREATININE PTH 1.54 mg/dL (0.76-1.27); PTH INTACT 93 pg/mL (15-65)
== END ==
LOC: LAB 07:25
PROVIDERS: ATTEND Nurse Practitioner
DX: N18.32 Chronic kidney disease, stage 3b (principal)
CPT/HCPCS: 36415; 80069; 82570; 83970; 84156; 85025

== ENCOUNTER → 2020-05-10 | Outpatient (CLI) | payer MEDICARE ==
[2020-05-10 08:06] LABS: ALBUMIN 3.7 g/dL (3.4-5.0)
[2020-05-10 08:07] LABS: GFR 32.1; PHOSPHORUS 2.7 mg/dL (2.6-4.7); POTASSIUM 3.8 mmol/L (3.5-5.1)
== END ==
LOC: LAB 07:23
PROVIDERS: ATTEND Nurse Practitioner
DX: N18.32 Chronic kidney disease, stage 3b (principal)
CPT/HCPCS: 36415; 80069

== ENCOUNTER → 2020-05-24 | Outpatient (CLI) | payer MEDICARE ==
[2020-05-24 08:28] LABS: ALBUMIN 3.8 g/dL (3.4-5.0); CALCIUM 8.7 mg/dL (8.5-10.1); GFR 32.1; PHOSPHORUS 2.7 mg/dL (2.6-4.7); POTASSIUM 3.5 mmol/L (3.5-5.1)
== END ==
LOC: LAB 07:29
PROVIDERS: ATTEND Nurse Practitioner
DX: N18.32 Chronic kidney disease, stage 3b (principal)
CPT/HCPCS: 36415; 80069

== ENCOUNTER → 2020-09-29 | Outpatient (CLI) | payer MEDICARE ==
[~2020-09-29] MED LIST changes: -SALM50DI IH; +SALM50DI2 IH
--- NOTE | 2020-09-29 09:45 | RAD ---
MR#: [id number] Date of Study: 09/29/2020 Ordering Physician: JOSHUA RICKS, Referring Physician: JOSHUA RICKS, Tech: Lucille Sharma RT R, CT RDMS AB, T APPROVED REPORT Patient Location : OUT-PATIENT Indications Lower Extremity Edema : Bilateral Past History Compression Stockings : YesDiabetes Medications Aspirin Findings Limited grayscale images of the bilateral saphenofemoral junctions did not reveal any obvious evidenc e of thrombus. The right great saphenous vein measures 5 mm and the left great saphenous vein measures 5 mm. Bilate ral greater saphenous veins did not show any evidence of reflux. Bilateral lesser saphenous veins did not show any evidence of reflux. Critical Notification Critical Value: No <Conclusion> 1. Negative for reflux in the bilateral greater and lesser saphenous veins. Signed by : Joshua Ricks, Electronically Approved : 09/29/2020 09:44:54
--- NOTE | 2020-09-29 12:44 | CARD ---
MR#: [id number] Date of Study: 09/29/2020 Ordering Physician: JOSHUA RICKS, Referring Physician: JOSHUA RICKS, Tech: Gaston Hidalgo [facility] APPROVED REPORT EXAM: Two-dimensional and M-mode echocardiogram with Doppler and color Doppler. Other Information Quality : AverageHR: 70bpm Rhythm : NSR INDICATION Palpitations RISK FACTORS Hypertension 2D DIMENSIONS Left Atrium(2D)4.0 (1.6-4.0cm)IVSd1.2 (0.7-1.1cm) Aortic Root(2D)3.3 (2.0-3.7cm)LVDd4.2 (3.9-5.9cm) LVOT Diameter2.0 (1.8-2.4cm)PWd1.2 (0.7-1.1cm) LVDs2.6 (2.5-4.0cm)FS (%) 37.3 % SV53.1 mlLVEF(%)67.6 (>50%) Aortic Valve AoV Peak Wai.137.0cm/sAoV VTI29.0cm AO Peak GR.7.5mmHgLVOT Peak Wai.120.9cm/s AO Mean GR.4mmHgAVA (VMAX)2.77cm2 Mitral Valve MV E Bkzebhpa25.3cm/sMV E Peak Gr.3mmHg MV DECEL [id number] A Ipzyhfui67.1cm/s MV E Mean Gr.2mmHgE/A Ratio0.9 Pulmonary Valve PV Peak Sxfzbmty777.0cm/s Tricuspid Valve TR P. Sjzawvjv527hn/sTR Peak Gr.32mmHg Pulmonary Vein S1 Mwztmswi96.5cm/sD2 Iztpmcax38.1cm/s LEFT VENTRICLE The left ventricle is normal size. There is borderline to mild concentric left ventricular hypertroph y. The left ventricular systolic function is normal. The ejection fraction is 60-65%. There is normal LV segmental wall motion. Transmitral Doppler flow pattern is Grade I-abnormal relaxation pattern. N o left ventricle thrombus noted on this study. There is no ventricular septal defect visualized. Ther e is no left ventricular aneurysm. There is no mass noted in the left ventricle. RIGHT VENTRICLE The right ventricle is normal size. There is normal right ventricular wall thickness. The right ventr icular systolic function is normal. ATRIA The left atrium is mildly dilated. The right atrium size is normal. The interatrial septum is intact with no evidence for an atrial septal defect or patent foramen ovale as noted on 2-D or Doppler imagi ng. AORTIC VALVE The aortic valve is normal in structure and function. Doppler and Color Flow revealed no significant aortic regurgitation. There is no significant aortic valvular stenosis. There is no aortic valvular v egetation. MITRAL VALVE The mitral valve is normal in structure and function. There is no evidence of mitral valve prolapse. There is no mitral valve stenosis. Doppler and Color-flow revealed trace mitral regurgitation. TRICUSPID VALVE The tricuspid valve is normal in structure and function. Doppler and Color Flow revealed trace tricus pid regurgitation. There is no tricuspid valve prolapse or vegetation. There is no tricuspid valve st enosis. PULMONIC VALVE The pulmonary valve is normal in structure and function. Doppler and Color Flow revealed no pulmonic valvular regurgitation. There is no pulmonic valvular stenosis. GREAT VESSELS The aortic root is normal in size. The ascending aorta is normal in size. The pulmonary artery is nor mal. The IVC is normal in size and collapses >50% with inspiration. PERICARDIAL EFFUSION There is no pleural effusion. There is no evidence of significant pericardial effusion. Critical Notification Critical Value: No <Conclusion> The left ventricular systolic function is normal. The ejection fraction is 60-65%. There is normal LV segmental wall motion. Transmitral Doppler flow pattern is Grade I-abnormal relaxation pattern. Trace mitral regurgitation. Trace tricuspid regurgitation. There is no evidence of significant pericardial effusion. Signed by : Eddie Thomas, Electronically Approved : 09/29/2020 12:44:07
== END ==
LOC: US 08:53
PROVIDERS: ATTEND Internal Medicine Cardiovascular Disease
DX: I51.7 Cardiomegaly (principal); I47.1 Supraventricular tachycardia; M79.89 Other specified soft tissue disorders
CPT/HCPCS: 93306; 93970

== ENCOUNTER → 2020-10-19 | Outpatient (CLI) | payer MEDICARE ==
[2020-10-19 08:06] LABS: BASO % 0 % (0-3); EOS # 0.1 x10^3/uL (0.0-0.7); EOS % 2 % (0-3); HEMATOCRIT 34.1 % (39.0-53.0); HEMOGLOBIN 11.9 g/dL (13.0-17.5); LYMPH # 1.5 x10^3/uL (1.0-4.8); LYMPH % 21 % (24-48); MEAN CORPUSCULAR HEMOGLOBIN 32 pg (25-35); MEAN CORPUSCULAR HGB CONC 35 g/dL (31-37); MEAN CORPUSCULAR VOLUME 92 fL (79-100); MONO # 0.5 x10^3/uL (0.0-1.1); MONO % 7 % (0-9); NEUT # 5.1 x10^3/uL (1.8-7.7); NEUT % 70 % (31-73); PLATELET COUNT 209 x10^3/uL (140-400); RED BLOOD COUNT 3.73 x10^6/uL (4.30-5.70); RED CELL DISTRIBUTION WIDTH 13.2 % (11.5-14.5); WHITE BLOOD COUNT 7.3 x10^3/uL (4.0-11.0)
[2020-10-19 08:15] LABS: ALBUMIN 3.7 g/dL (3.4-5.0); CALCIUM 8.7 mg/dL (8.5-10.1); CREATININE 2.3 mg/dL (0.7-1.3); GFR 27.4; PHOSPHORUS 3.1 mg/dL (2.6-4.7); POTASSIUM 3.2 mmol/L (3.5-5.1)
[2020-10-20 08:15] LABS: CALCIUM PTH 8.9 mg/dL (8.6-10.2); PHOSPHORUS PTH 2.9 mg/dL (2.8-4.1); PTH INTACT 87 pg/mL (15-65)
== END ==
LOC: LAB 07:17
PROVIDERS: ATTEND Nurse Practitioner
DX: N18.32 Chronic kidney disease, stage 3b (principal)
CPT/HCPCS: 36415; 80069; 82570; 83970; 84156; 85025

== ENCOUNTER → 2020-11-02 | Outpatient (CLI) | payer MEDICARE ==
[2020-11-02 08:30] LABS: ALBUMIN 3.4 g/dL (3.4-5.0); CALCIUM 8.5 mg/dL (8.5-10.1); CREATININE 2.3 mg/dL (0.7-1.3); GFR 27.4; PHOSPHORUS 2.5 mg/dL (2.6-4.7)
== END ==
LOC: LAB 07:38
PROVIDERS: ATTEND Nurse Practitioner
DX: N18.32 Chronic kidney disease, stage 3b (principal)
CPT/HCPCS: 36415; 80069

== ENCOUNTER → 2021-01-25 | Outpatient (CLI) | payer MEDICARE ==
[~2021-01-25] MED LIST changes: +POTA-121 PO; -POTA20TA4 PO
[2021-01-25 08:05] LABS: ALBUMIN 3.5 g/dL (3.4-5.0); CALCIUM 8.3 mg/dL (8.5-10.1); CREATININE 1.8 mg/dL (0.7-1.3); GFR 36.2; PHOSPHORUS 2.8 mg/dL (2.6-4.7); POTASSIUM 4.4 mmol/L (3.5-5.1)
== END ==
LOC: LAB 07:14
PROVIDERS: ATTEND Nurse Practitioner
DX: N18.32 Chronic kidney disease, stage 3b (principal)
CPT/HCPCS: 36415; 80069

== ENCOUNTER → 2021-05-24 | Outpatient (CLI) | payer MEDICARE ==
[2021-05-24 08:27] LABS: BASO % 0 % (0-3); EOS # 0.1 x10^3/uL (0.0-0.7); EOS % 2 % (0-3); HEMOGLOBIN 12.2 g/dL (13.0-17.5); LYMPH # 1.2 x10^3/uL (1.0-4.8); LYMPH % 18 % (24-48); MEAN CORPUSCULAR HEMOGLOBIN 29 pg (25-35); MEAN CORPUSCULAR HGB CONC 33 g/dL (31-37); MEAN CORPUSCULAR VOLUME 88 fL (79-100); MONO # 0.4 x10^3/uL (0.0-1.1); MONO % 7 % (0-9); NEUT # 4.7 x10^3/uL (1.8-7.7); NEUT % 73 % (31-73); PLATELET COUNT 199 x10^3/uL (140-400); RED BLOOD COUNT 4.23 x10^6/uL (4.30-5.70); RED CELL DISTRIBUTION WIDTH 14.5 % (11.5-14.5); WHITE BLOOD COUNT 6.5 x10^3/uL (4.0-11.0)
[2021-05-24 08:38] LABS: ALBUMIN 3.8 g/dL (3.4-5.0); CALCIUM 8.5 mg/dL (8.5-10.1); CREATININE 2.1 mg/dL (0.7-1.3); GFR 30.3; PHOSPHORUS 2.9 mg/dL (2.6-4.7); POTASSIUM 4.1 mmol/L (3.5-5.1)
[2021-05-24 08:51] LABS: CREATININE,RANDOM URINE 116.3 mg/dL (Not Establ.)
[2021-05-25 10:18] LABS: CALCIUM PTH 9.3 mg/dL (8.6-10.2); CREATININE PTH 1.96 mg/dL (0.76-1.27); PHOSPHORUS PTH 2.6 mg/dL (2.8-4.1); PTH INTACT 98 pg/mL (15-65)
== END ==
LOC: LAB 07:23
PROVIDERS: ATTEND Nurse Practitioner
DX: N18.4 Chronic kidney disease, stage 4 (severe) (principal)
CPT/HCPCS: 36415; 80069; 82570; 83970; 84156; 85025